=== PATIENT | male | born 1975 | race Caucasian/White ===

== ENCOUNTER 2020-08-17 15:58 | Inpatient (IN) | payer OTHER ==
[~2020-08-17] VITALS: Ht 157.5 cm; Wt 37.5 kg
[2020-08-17] MEDS ORDERED: IBUP200T45 PO (16:29)
[2020-08-17] MEDS ORDERED: LACT20EL PO (16:29)
[2020-08-17] MEDS ORDERED: ATIV1TAB7 PO (16:29)
[2020-08-17] MEDS ORDERED: MUCI1TAB18 PO (16:29)
[2020-08-17] MEDS ORDERED: SCOP1PAT2 TOP (16:29)
[2020-08-17] MEDS ORDERED: BACL1TAB9 PO (16:29)
[2020-08-17] MEDS ORDERED: OMEP40CA4 PO (16:29)
[2020-08-17] MEDS ORDERED: FLUC200T2 PO (16:29)
[2020-08-17] MEDS ORDERED: NS 500 ML IV ONE (17:00)
[2020-08-17] MEDS ORDERED: NS 1,040 ML in IV 1 EA IV ONE (17:00)
--- NOTE | 2020-08-17 17:26 | ECGEPIP ---
[facility] - ED Test Date: 2020-08-17 Pat Name: MALA GAMBLE Department: Room: - Gender: Male Fabrication Welder: AMRIT : 1975 Requested By: MALA BROTHERS Order Number: [id number] Reading MD: Crow Saenz Measurements Intervals [place] Rate: 130 P: 69 TX: 130 QRS: 53 QRSD: 68 T: 74 QT: 288 QTc: 423 Interpretive Statements Sinus tachycardia NO PRIORS FOR COMPARISON Electronically Signed on 08-17-2020 17:26:14 EDT by Crow Saenz
[2020-08-17 17:50] LABS: VENOUS BASE EXCESS -5.9 (-2.0-2.0); VENOUS HCO3 19.3 MEQ/L (23.0-27.0); VENOUS O2 SATURATION 93.1 % (60.0-80.0); VENOUS PARTIAL PRESSURE CO2 37.1 mmHg (38.0-50.0); VENOUS PARTIAL PRESSURE O2 70.7 mmHg (30.0-50.0); VENOUS PH 7.334 UNITS (7.330-7.430); VENOUS STANDARD HCO3 19.6 MEQ/L; VENOUS TOTAL CO2 20.4 MEQ/L (24.0-28.0)
[2020-08-17 17:56] LABS: HEMATOCRIT 45.3 % (42.0-52.0); HEMOGLOBIN 14.1 g/dl (13.5-17.5); MEAN CORPUSCULAR HEMOGLOBIN 26.2 pg (27.0-33.0); MEAN CORPUSCULAR HGB CONC 31.1 g/dl (32.0-36.5); MEAN CORPUSCULAR VOLUME 84.2 fl (80.0-96.0); PLATELET COUNT, AUTOMATED 620 10^3/uL (150-450); RED BLOOD COUNT 5.38 10^6/uL (4.30-6.10); WHITE BLOOD COUNT 16.2 10^3/uL (4.0-10.0)
--- NOTE | 2020-08-17 17:56 | REP ---
INDICATION: Abdominal Pain. COMPARISON: None. TECHNIQUE: Cross-table lateral view of the upper abdomen and lower chest as well as a supine KUB. A supine chest x-ray is also included. FINDINGS: There are increased interstitial markings in the left lung base on the frontal view of the chest. Early infiltrate cannot be excluded. A gastrojejunostomy tube is noted in place. Tubing is seen coursing through the C loop in to the left upper quadrant consistent with jejunal position. There is mild gaseous distention of the proximal colon. There is marked rectal distention with formed stool filling the pelvis and central abdomen. This is consistent with fecal impaction/fecal retention. IMPRESSION: Feeding gastrojejunostomy tube in place. Marked formed stool dilation of the rectum consistent with fecal retention/fecal impaction. Increased interstitial markings left lung base. Cannot exclude early infiltrate. a <Electronically signed by Giorgio Vasques > 08/17/20 [id number]
[2020-08-17] MEDS ORDERED: CALCIUM GLUCONATE 1,000 MG in D5W MINI-BAG PLUS 100 ML IV ONE (18:25)
[2020-08-17] MEDS ORDERED: ISOVUE-370 76% 100ML VIAL As Ordered ONE (18:30)
[2020-08-17 19:09] LABS: ATYPICAL LYMPH 3 % (0-5); LYMPHOCYTES 7 % (16-44); METAMYELOCYTES 1 % (0-0); MONOCYTES 7 % (0-5); NEUTROPHILS 27 % (28-66); PLATELET ESTIMATE INCREASED (NORMAL)
[2020-08-17] MEDS ORDERED: PIPERACILLIN/TAZOBACTAM SOD 4.5 GM in D5W MINI-BAG PLUS 50 ML IV ONE (19:20)
[2020-08-17] MEDS ORDERED: VANCOMYCIN HCL 500 MG in D5W MINI-BAG PLUS 100 ML IV ONE (19:30)
--- NOTE | 2020-08-17 19:55 | REPVR ---
PROCEDURE INFORMATION: Exam: CT Chest With Contrast; Diagnostic Exam date and time: 08/17/2020 6:42 PM Age: 45 years old Clinical indication: Other: SOB; Further evaluate for infiltrate and obstruction TECHNIQUE: Imaging protocol: Diagnostic computed tomography of the chest with contrast. Radiation optimization: All CT scans at this facility use at least one of these dose optimization techniques: automated exposure control; mA and/or kV adjustment per patient size (includes targeted exams where dose is matched to clinical indication); or iterative reconstruction. Contrast material: ISOVUE 370; Contrast volume: 75 ml; Contrast route: INTRAVENOUS (IV); COMPARISON: ME Abdomen,Flat Upright,PA CHEST 08/17/2020 5:17 PM FINDINGS: Lungs: Diffuse ground-glass nodular opacities centered on the centrilobular core structures noted in both lungs, right greater than left. Pleural spaces: Unremarkable. No pneumothorax. No pleural effusion. Heart: Unremarkable. No cardiomegaly. No pericardial effusion. Mediastinal space: Large sliding hiatal hernia with fluid noted in the esophagus up to the level of the thoracic inlet. Aorta: Unremarkable. No aortic aneurysm. Lymph nodes: Unremarkable. No enlarged lymph nodes. Kidneys and ureters: Bilateral less than 1 cm renal cysts. No hydronephrosis in the visualized portion of either kidney. Stomach and bowel: PEG tube is present within the stomach. Bowel is herniated into the lesser sac. Intraperitoneal space: Small amount of intra-abdominal ascites. Bones/joints: Unremarkable. No acute fracture. Soft tissues: Asymmetric thickening of the soft tissues of the left side of the neck as compared to the right. IMPRESSION: 1. Diffuse pneumonitis. Bronchiolitis/vasculitis among the considerations. No evidence of interstitial fibrosis which might be expected with connective tissue related disease. 2. Dilated fluid-filled esophagus. Findings suggest a severe gastroesophageal reflux, achalasia or scleroderma. 3. Foramen of Sukhjinder hernia 4. Bilateral simple renal cysts.No further workup recommended. 5. Small amount of intra-abdominal ascites. COMMENTS: Consistent with the [employer]'s Incidental Findings Committee white paper (J Am Javad Radiol 2018): Any incidental renal lesion less than 1 cm or classified as too small to characterize, or any incidental cystic renal lesion characterized as simple-appearing, is likely benign. No follow-up imaging is recommended for these lesions per consensus recommendations based on imaging criteria. Electronically signed by: Melisa Sanchez On 08/17/2020 19:55:06 PM
--- NOTE | 2020-08-17 20:05 | REPVR ---
PROCEDURE INFORMATION: Exam: CT Abdomen And Pelvis With Contrast Exam date and time: 08/17/2020 6:42 PM Age: 45 years old Clinical indication: Other: SOB; Further evaluate for infiltrate and obstruction TECHNIQUE: Imaging protocol: Computed tomography of the abdomen and pelvis with contrast. Radiation optimization: All CT scans at this facility use at least one of these dose optimization techniques: automated exposure control; mA and/or kV adjustment per patient size (includes targeted exams where dose is matched to clinical indication); or iterative reconstruction. Contrast material: ISOVUE 370; Contrast volume: 75 ml; Contrast route: INTRAVENOUS (IV); COMPARISON: [place] Abdomen,Flat Upright,PA CHEST 08/17/2020 5:17 PM FINDINGS: Tubes, catheters and devices: Peg tube present within the stomach. Lungs: Nodular ground-glass opacities at both lung bases with subpleural atelectasis/consolidation in dependent portion of the lung bases. Mediastinal space: Fluid-filled esophagus. The esophageal wall is thickened. Liver: Normal. No mass. Gallbladder and bile ducts: Normal. No calcified stones. No ductal dilation. Pancreas: Normal. No ductal dilation. Spleen: Normal. No splenomegaly. Adrenal glands: Normal. No mass. Kidneys and ureters: Bilateral simple renal cysts too numerous to count. No hydronephrosis. Stomach and bowel: Bowel herniated into the lesser sac. Massive distention of the rectosigmoid colon with stool. Dilated small bowel loops noted in the abdomen particularly on the right Appendix: Not seen as a separate structure. Intraperitoneal space: Small amount of perihepatic ascites. Moderate amount of ascites within the abdomen and pelvis. Ascites noted in the inguinal canal on the right. Vasculature: Unremarkable. No abdominal aortic aneurysm. Lymph nodes: Unremarkable. No enlarged lymph nodes. Urinary bladder: Loculated fluid collection noted in the right hemipelvis may be related to the patient's bladder which is displaced anteriorly and to the right by the massively distended rectosigmoid colon. Reproductive: Unremarkable as visualized. Bones/joints: Unremarkable. No acute fracture. Soft tissues: 1.7 cm Lipoma on the right adjacent to obturator externus muscle.. IMPRESSION: 1. Large fecal impaction. Partial small bowel obstruction or focal ileus. 2. Foramen of [place] hernia. 3. Moderate amount of intra-abdominal ascites. 4. Bilateral simple renal cysts.No further workup recommended. 5. Fluid collection right lower quadrant probably representing the patient's bladder which is displaced by the massively distended rectosigmoid colon 6. Six. Nodular ground-glass opacities at the lung bases. Bronchiolitis or vasculitis among the diagnostic considerations COMMENTS: Consistent with the [employer]'s Incidental Findings Committee white paper (J Am Javad Radiol 2018): Any incidental renal lesion less than 1 cm or classified as too small to characterize, or any incidental cystic renal lesion characterized as simple-appearing, is likely benign. No follow-up imaging is recommended for these lesions per consensus recommendations based on imaging criteria. Electronically signed by: Melisa Sanchez On 08/17/2020 20:04:25 PM
[2020-08-17] MEDS ORDERED: ALLE1TAB23 PO (20:12)
[2020-08-17] MEDS ORDERED: MUCI1TAB16 PO (20:12)
[2020-08-17] MEDS ORDERED: FAMO1TAB11 PO (20:12)
[2020-08-17] MEDS ORDERED: LORA1TAB4 PO (20:12)
[2020-08-17 20:49] LABS: BLOOD UREA NITROGEN 24 MG/DL (7-18); CARBON DIOXIDE LEVEL 20 MEQ/L (21-32); CHLORIDE LEVEL 110 MEQ/L (98-107); CREATININE FOR GFR 1.35 MG/DL (0.70-1.30); GLOMERULAR FILTRATION RATE > 60.0 (>60); GLUCOSE, FASTING 77 MG/DL (70-100); POTASSIUM SERUM 3.8 MEQ/L (3.5-5.1); SODIUM LEVEL 142 MEQ/L (136-145)
[2020-08-17] MEDS ORDERED: MOM 30ML SUSPENSION UDC PO PRN (21:15)
[2020-08-17] MEDS ORDERED: MAALOX 30 ML SUSP *UDC PO PRN (21:15)
[2020-08-17] MEDS ORDERED: ACETAMINOPHEN TAB 650MG DOSE (2X325MG) PO PRN (21:15)
--- NOTE | 2020-08-17 21:22 | HPEPDOC ---
[facility] Medical History & Physical Date of Admission Aug 17, 2020 Date of Service: Aug 17, 2020 Attending Physician: NISHA ROBERTS MD History and Physical TIME OF SERVICE: 9:45 PM CHIEF COMPLAINT: Agitation HISTORY OF PRESENT ILLNESS: The history was obtained from the patient's mother the patient has cerebral palsy. Mr. Montgomery and his mother, who reside in [place], are visiting a relative in the area. This morning the patient was in his usual state but she noticed that this afternoon while watching TV he became agitated and his abdomen was distended and tight. She gave him stool softeners which helped a little bit but prior to their departure home the patient became more agitated, less responsive, his bowel sounds became loud and he started vomiting brown-colored malodorous fluid. He has had 2 similar episodes in the past which required surgical disimpaction; the patient's mother was concerned that he might have a recurrence therefore she came to the ER for evaluation. REVIEW OF SYSTEMS: Unable to obtain assess because the patient is cognitively impaired PAST MEDICAL/ SURGICAL HISTORY: Cerebral palsy complicated by dysphagia and placement of PEG tube x2, TMJ, GERD, he has been hospitalized for pneumonia in the past, history of fecal impaction requiring surgical disimpaction's x2 SOCIAL HISTORY: He does not smoke drink or use recreational drugs and resides with his mother in [place] FAMILY HISTORY: According to his mother there is no history of family medical problems ALLERGIES: Please see below. HOME MEDICATIONS: Please see below. PHYSICAL EXAMINATION: Vital Signs Date Time Temp Pulse Resp B/P (MAP) Pulse Ox O2 Delivery O2 Flow Rate FiO2 08/17/20 16:00 98.0 107 124/70 (88) Room Air 08/17/20 16:09 24 92 GENERAL APPEARANCE: Cachectic/lethargic but intermittently arousable with vocal and physical stimuli HEENT: mucous membranes are pink but dry /NG to low intermittent suction there is about 200 mls of fecal colored fluid in the suction container CARDIOVASCULAR: He is tachycardic/NMRG / no LE edema LUNGS: CTAB on RA ABDOMEN: He has a PEG tube/the skin surrounding the PEG tube is intact there is no redness or discharge/contour flat / soft MUSCULOSKELETAL: He has temporal wasting /he has muscle wasting affecting the extremities INTEGUMENT: not he is slightly diaphoretic and flushed NEUROLOGICAL: Unable to assess because the patient is cognitively impaired PSYCHIATRIC: assess because the patient is cognitively impaired LABORATORY DATA: 08/17/20 18:11 IMAGING: Abdominal x-ray IMPRESSION: Feeding gastrojejunostomy tube in place. Marked formed stool dilation of the rectum consistent with fecal retention/fecal impaction. Increased interstitial markings left lung base. Cannot exclude early infiltrate. a" CT abdomen and pelvis IMPRESSION: 1. Large fecal impaction. Partial small bowel obstruction or focal ileus. 2. Foramen of [place] hernia. 3. Moderate amount of intra-abdominal ascites. 4. Bilateral simple renal cysts.No further workup recommended. 5. Fluid collection right lower quadrant probably representing the patient's bladder which is displaced by the massively distended rectosigmoid colon 6. Six. Nodular ground-glass opacities at the lung bases. Bronchiolitis or vasculitis among the diagnostic considerations COMMENTS: Consistent with the [employer]'s Incidental Findings Committee white paper (J Am Javad Radiol 2018): Any incidental renal lesion less than 1 cm or classified as too small to characterize, or any incidental cystic renal lesion characterized as simple-appearing, is likely benign. No follow-up imaging is recommended for these lesions per consensus recommendations based on imaging criteria. CT chest IMPRESSION: 1. Diffuse pneumonitis. Bronchiolitis/vasculitis among the considerations. No evidence of interstitial fibrosis which might be expected with connective tissue related disease. 2. Dilated fluid-filled esophagus. Findings suggest a severe gastroesophageal reflux, achalasia or scleroderma. 3. Foramen of [place] hernia 4. Bilateral simple renal cysts.No further workup recommended. 5. Small amount of intra-abdominal ascites. COMMENTS: Consistent with the [employer]'s Incidental Findings Committee white paper (J Am Javad Radiol 2018): Any incidental renal lesion less than 1 cm or classified as too small to characterize, or any incidental cystic renal lesion characterized as simple-appearing, is likely benign. No follow-up imaging is recommended for these lesions per consensus recommendations based on imaging cr iteria. MICROBIOLOGY: Respiratory panel is negative ASSESSMENT: Mr. Montgomery is a 45-year-old with a history of Cerebral palsy with dysphagia requiring PEG tube, TMJ, GERD, and history of surgical disimpaction's who is admitted for management of sepsis, partial small bowel obstruction, and large fecal impaction. PLAN: 1 Sepsis He has the following SIRS criteria: HR >120s during exam / bands 55% % / WBC 16.2 / RR 24 The source is likely intra-abdominal He also has lactic acidosis and shock liver Plan: Because NEWS2 Score is 9 points, which puts him in the high risk category, we will admit him to PCU / telemetry /trend lactic acid, check DIC panel/Zosyn and vancomycin pending blood culture results/ switch to lactate ringers / Acetaminophen PRN for fever / target MAP at of least 65 to 70 / f/u Is and Os with target UOP of at least 0.5 ml/kg/H / f/u FSBS w target serum glucose 140-180 while acutely ill 2 Partial small bowel obstruction/large fecal impaction Plan: hold tube feedings/IV fluids/NGT to low intermittent suction/trend mag and potassium/follow-up with Dr. Barraza in the morning /low-dose morphine as needed for pain and agitation 3 ANTONETTE Likely prerenal Plan: IV fluids/follow-up lytes for FENa/follow-up renal ultrasound 4 Transaminitis likely due to shock liver Plan: Follow-up hepatitis panel / trend LFTs / tx infection 5 Pneumonitis? His mother reported that he was hospitalized for pneumonia in [place]. Because he is on fluconazole wonder if the infection was coccidiomycosis. Plan: Continue with fluconazole/request records from [facility] /the daytime team may consider consulting ID () 6 Ascites Plan: Follow-up hepatitis panel/based on the CT scan findings and his physical exam I suspect the volume is to small for paracentesis 7 Cerebral palsy Plan: Ativan PRN agitation DVT PROPHYLAXIS: Teds and sequentials (Mitesh score is 4 therefore pharmacological prophylaxis is indicated) DISPOSITION: his prognosis is guarded / anticipate that he will need more than 2 midnight's stay Home Medications Scheduled Baclofen (Baclofen) 20 Mg Tablet, 20 MG PO TID Famotidine (Famotidine) 20 Mg Tablet, 20 MG PO BID Fexofenadine HCl (Fexofenadine HCl) 180 Mg Tablet, 180 MG PO DAILY Fluconazole (Fluconazole) 200 Mg Tablet, 400 MG PO DAILY Guaifenesin (Mucinex) 1,200 Mg Tab.er.12h, 1,200 MG PO BID Lactulose (Lactulose) 10 Gm/15 Ml Solution, 30 ML PO QHS Lorazepam (Lorazepam) 1 Mg Tablet, 1 MG PO DAILY Omeprazole (Omeprazole) 40 Mg Capsule., 40 MG PO BID Scopolamine (Transderm-Scop) 1 Each Patch.td.3, 1 MG TOP Q72H BEHIND LEFT EAR Scheduled PRN Ibuprofen (Ibu-200) 200 Mg Tablet, 600 MG PO Q4H PRN for PAIN LEVEL 1-5 Lorazepam (Ativan) 1 Mg Tablet, 1 MG PO QHS PRN for ANXIETY Allergies Coded Allergies: No Known Allergies (Unverified , 08/17/20) A-FIB/CHADSVASC A-FIB History Current/History of A-Fib/PAF?: No Current PO Anticoag Therapy: No NISHA ROBERTS MD Aug 17, 2020 21:22
[2020-08-17 22:05] LABS: RSV AMPLIFICATION NEGATIVE (NEGATIVE)
[2020-08-17 22:13] LABS: OSMOLALITY SERUM 302 MOSM/KG (275-295)
[2020-08-17 22:13] LABS: MRSA PCR SCREEN NOT DETECTED (NEGATIVE)
[2020-08-17 22:48] LABS: INR 1.17; PROTHROMBIN TIME 15.2 SECONDS (12.5-14.3)
[2020-08-17 22:49] LABS: FIBRINOGEN 410 MG/DL (221-452); PARTIAL THROMBOPLASTIN TIME 22.5 SECONDS (24.2-38.5)
[2020-08-17 22:57] LABS: ALBUMIN 2.7 GM/DL (3.2-5.2); ALT/SGPT 61 U/L (12-78); BILIRUBIN,DIRECT < 0.1 MG/DL (0.0-0.2); BILIRUBIN,TOTAL 0.2 MG/DL (0.2-1.0); CPK CREATINE PHOSPHOKINASE 75 U/L (39-308); HEPATITIS B SURFACE ANTIGEN NEGATIVE (NEGATIVE); TOTAL PROTEIN 5.9 GM/DL (6.4-8.2); URIC ACID 4.7 MG/DL (3.5-7.2)
[2020-08-17 23:16] LABS: D-DIMER QUANT > 4000 ng/ml (<500)
[2020-08-17 23:20] LABS: HEPATITIS B CORE ANTIBODY IGM NEGATIVE (NEGATIVE); HEPATITIS C VIRUS ABY INDEX 0.1 INDEX (<0.8)
[2020-08-17 23:23] LABS: HEPATITIS A ANTIBODY IGM NEGATIVE (NEGATIVE)
[2020-08-18] MEDS ORDERED: MORPHINE 2 MG/ML 1ML VIAL (J2270) IV PRN (00:30)
--- NOTE | 2020-08-18 01:01 | REPVR ---
PROCEDURE INFORMATION: Exam: US Retroperitoneal Limited, Kidneys Exam date and time: 08/17/2020 11:25 PM Age: 45 years old Clinical indication: Screening exam; Other: Eduardo TECHNIQUE: Imaging protocol: Real-time ultrasound of the retroperitoneum with image documentation. Examination was focused on the kidneys. COMPARISON: 1. CT ABD/PEL W/IV CONTRAST ONLY 2020-08-17 18:35 2. [place] Abdomen,Flat Upright,PA CHEST 2020-08-17 17:17 FINDINGS: 8.5 cm right, and 8 cm left kidneys with increased echogenicity. Kidneys are small and without masses or hydronephrosis. Couple subcentimeter simple benign renal cysts are present. Small amount of free fluid and also fluid distended bowel. IMPRESSION: 1. No sonographic acute abnormality. 2. Chronic renal disease. 3. Small amount of free fluid and also fluid distended bowel. Electronically signed by: Bijan Martinez On 08/18/2020 01:00:48 AM
[2020-08-18] MEDS ORDERED: LORazepam 1 MG TAB PO PRN (01:05)
[2020-08-18] MEDS ORDERED: VANCOMYCIN HCL 1,000 MG, VIAL MATE ADAPTER 1 EACH in NS 250 ML IV ONE (02:15)
[2020-08-18] MEDS: LR 1,000 ML IV SCH ×4 (06:22→19:33)
[2020-08-18] MEDS: PIPERACILLIN/TAZOBACTAM SOD 3.375 GM in D5W MINI-BAG PLUS 50 ML IV SCH ×3 (06:24→18:00)
[2020-08-18 06:34] LABS: HEMATOCRIT 38.3 % (42.0-52.0); HEMOGLOBIN 12.3 g/dl (13.5-17.5); MEAN CORPUSCULAR HEMOGLOBIN 26.3 pg (27.0-33.0); MEAN CORPUSCULAR HGB CONC 32.1 g/dl (32.0-36.5); RED BLOOD COUNT 4.67 10^6/uL (4.30-6.10)
[2020-08-18 06:36] LABS: PLATELET COUNT, AUTOMATED 374 10^3/uL (150-450)
[2020-08-18 06:49] LABS: ALBUMIN 2.7 GM/DL (3.2-5.2); BILIRUBIN,TOTAL 0.3 MG/DL (0.2-1.0); CALCIUM LEVEL 8.9 MG/DL (8.5-10.1); CREATININE FOR GFR 1.41 MG/DL (0.70-1.30); GLOMERULAR FILTRATION RATE 58.4 (>60); MAGNESIUM LEVEL 2.1 MG/DL (1.8-2.4); POTASSIUM SERUM 4.4 MEQ/L (3.5-5.1); TOTAL PROTEIN 6.9 GM/DL (6.4-8.2)
[2020-08-18] MEDS ORDERED: LORazepam 1 MG TAB PO SCH (09:00)
[2020-08-18] MEDS ORDERED: FLUCONAZOLE 100 MG TAB PO SCH (09:00)
[2020-08-18] MEDS: ENOXAPARIN 30MG/0.3ML SYRINGE (J1650 PER 10MG) SC SCH (09:37)
--- NOTE | 2020-08-18 13:27 | CR.PDOC ---
General Date of Consultation: Aug 18, [address] Barraza. HISTORY OF PRESENT ILLNESS: History is provided by the pt's mother at bedside and taken from the chart. The patient has cerebral palsy, is wheelchair bound, non ambulatory, chronic dysphagia with feeding tube. The pt and his mother, who reside in [place], were visiting a relative in the area. 08/17 the patient was in his usual state but his mother noticed in the afternoon he became agitated and his abdomen was distended and tight. She tried giving him stool softeners which seemed to help but the patient became more agitated, less responsive, and had vomiting brown-colored fluid. He has had 2 similar episodes in the past which required surgical disimpaction. His mother was concerned that he might have a recurrence therefore she came to the ER for evaluation. General Surgery was consulted. ALLERGIES: Please see below. HOME MEDICATIONS: Please see below. PMH/PSH Cerebral palsy dysphagia and placement of G-J tube TMJ GERD hospitalized for pneumonia in the past, history of fecal impaction requiring surgical disimpaction's x2 SOCIAL HISTORY: lives with his mother in [place]. REVIEW OF SYSTEMS: The pt is unable to provide history. PHYSICAL EXAMINATION: VITAL SIGNS: Afebrile Heart rate 109, respiratory rate 20, blood pressure 139/95, O2 sat 100%. GENERAL APPEARANCE: Cachectic appearing HEENT: Bilious drainage is noted from the mouth. RESPIRATORY: Rhonchi noted CARDIOVASCULAR: Tachycardic ABDOMEN: GJ tube in place, fecal retention palpable mid abdomen. EXTREMITIES: Contractures upper and lower extremities with muscle wasting noted. LABORATORY DATA: WBC 28.0, this is increased from 16.27/13. Hemoglobin 12.3 Platelets 374 Follow-up lactic acid at 6:15 AM 4.0 Serum creatinine 1.41, GFR 58.4 Imaging AXR Feeding gastrojejunostomy tube in place. Marked formed stool dilation of the rectum consistent with fecal retention/fecal impaction. Increased interstitial markings left lung base. Cannot exclude early infiltrate. a <Electronically signed by Giorgio Vasques > 08/17/[address] A/P IMPRESSION: 1. Large fecal impaction. Partial small bowel obstruction or focal ileus. 2. Foramen of Sukhjinder hernia. 3. Moderate amount of intra-abdominal ascites. 4. Bilateral simple renal cysts.No further workup recommended. 5. Fluid collection right lower quadrant probably representing the patient's bladder which is displaced by the massively distended rectosigmoid colon 6. Six. Nodular ground-glass opacities at the lung bases. Bronchiolitis or vasculitis among the diagnostic considerations ASSESSMENT/PLAN: Ileus possibly secondary to his acute illness. Management of sepsis as per hospitalist The patient is reviewed and examined as per Dr. Barraza. Continue NPO G tube to LIS, 825ml recorded output so far. IVF 100ml/hr Continue to closely monitor. Dysphagia/G/J-tube in place. Large fecal impaction Requested soapsuds enema this morning and to be repeated at noon time. Monitor. Vital Signs/I&O Vital Signs Date Time Temp Pulse Resp B/P (MAP) Pulse Ox O2 Delivery O2 Flow Rate FiO2 08/18/20 12:30 109 20 139/95 (110) 100 08/17/20 16:09 Room Air 08/17/20 16:00 98.0 I&O- Last 24 Hours up to 6 AM 08/18/20 05:59 Intake Total 1310 ml Balance 1310 ml Laboratory Data Labs 24H Laboratory Tests 2 08/17/20 16:56: Neutrophils (%) (Auto) , Nucleated Red Blood Cells % (auto) 0.0, Neutrophils 27L, Band Neutrophils 55H, Lymphocytes (Manual) 7L, Monocytes (Manual) 7H, Metamyelocytes 1H, Atypical Lymphocytes 3, Platelet Estimate INCREASED, Lactic Acid Level 5.9*H 08/17/20 17:22: Blood Gas Bicarbonate Standard 19.6, Venous Blood pH 7.334, Venous Blood Partial Pressure CO2 37.1L, Venous Blood Partial Pressure O2 70.7H, Venous Blood Total Carbon Dioxide 20.4L, Venous Blood HCO3 19.3L, Venous Blood Oxygen Saturation 93.1H, Venous Blood Base Excess -5.9L 08/17/20 17:44: POC Glucose (Misc Panel) 104, POC Sodium (Misc Panel) 136, POC Potassium (Misc Panel) 8.4*H, POC Chloride (Misc Panel) 108, POC Total CO2 (Misc Panel) 21.0L, POC Blood Urea Nitrogen (Misc Panel 36H, POC Ionized Calcium (Misc Panel) 4.3L, POC Creatinine (Misc Panel) 1.5H, POC Hematocrit (Misc Panel) 48.0 08/17/20 18:11: Anion Gap 12, Glomerular Filtration Rate > 60.0, Osmolality 302H, Uric Acid 4.7, Calcium Level 8.0L, Total Bilirubin 0.2, Direct Bilirubin < 0.1, Aspartate Amino Transf (AST/SGOT) 48H, Alanine Aminotransferase (ALT/SGPT) 61, Alkaline Phosphatase 131H, Total Creatine Kinase 75, Total Protein 5.9L, Albumin 2.7L, Albumin/Globulin Ratio 0.8, Hepatitis A IgM Antibody NEGATIVE, Hepatitis B Giovanna face Antigen NEGATIVE, Hepatitis B Core IgM Antibody NEGATIVE, Hepatitis C Antibody Index 0.1 08/17/20 20:11: Coronavirus (COVID-19)(PCR) NEGATIVE, Influenza Type A (RT-PCR) NEGATIVE, Influenza Type B (RT-PCR) NEGATIVE, Respiratory Syncytial Virus (PCR) NEGATIVE, Methicillin-Resist S.aureus DNA PCR NOT DETECTED 08/17/20 22:27: Prothrombin Time 15.2H, Prothromb Time International Ratio 1.17, Activated Partial Thromboplast Time 22.5L, Fibrinogen 410, D-Dimer, Quantitative > 4000H, Lactic Acid Level 6.2*H 08/18/20 01:15: Lactic Acid Level 6.3*H 08/18/20 06:15: Nucleated Red Blood Cells % (auto) 0.0, Anion Gap 9, Glomerular Filtration Rate 58.4L, Lactic Acid Followup at 4 Hours 4.0*H, Calcium Level 8.9, Magnesium Level 2.1, Total Bilirubin 0.3, Aspartate Amino Transf (AST/SGOT) 50H, Alanine Aminotransferase (ALT/SGPT) 65, Alkaline Phosphatase 122H, Total Protein 6.9, Albumin 2.7L, Albumin/Globulin Ratio 0.6 08/18/20 11:01: Lactic Acid Level 3.8*H, Procalcitonin 127.88 CBC/BMP Laboratory Tests 08/17/20 16:56 08/17/20 18:11 08/18/20 06:15 Microbiology Microbiology 08/17/20 Blood Culture, Received Pending 08/17/20 Blood Culture, Received Pending Allergies Coded Allergies: No Known Allergies (Unverified , 08/17/20) Home Medications Scheduled Baclofen (Baclofen) 20 Mg Tablet, 20 MG PO TID, (Reported) Famotidine (Famotidine) 20 Mg Tablet, 20 MG PO BID, (Reported) Fexofenadine HCl (Fexofenadine HCl) 180 Mg Tablet, 180 MG PO DAILY, (Reported) Fluconazole (Fluconazole) 200 Mg Tablet, 400 MG PO DAILY, (Reported) Guaifenesin (Mucinex) 1,200 Mg Tab.er.12h, 1,200 MG PO BID, (Reported) Lactulose (Lactulose) 10 Gm/15 Ml Solution, 30 ML PO QHS, (Reported) Lorazepam (Lorazepam) 1 Mg Tablet, 1 MG PO DAILY, (Reported) Omeprazole (Omeprazole) 40 Mg Capsule.dr, 40 MG PO BID, (Reported) Scopolamine (Transderm-Scop) 1 Each Patch.td.3, 1 MG TOP Q72H, (Reported) BEHIND LEFT EAR Scheduled PRN Ibuprofen (Ibu-200) 200 Mg Tablet, 600 MG PO Q4H PRN for PAIN LEVEL 1-5, (Reported) Lorazepam (Ativan) 1 Mg Tablet, 1 MG PO QHS PRN for ANXIETY, (Reported) Raquel Lay Aug 18, 2020 13:27
[2020-08-18] MEDS ORDERED: VANCOMYCIN INTERMITTENT/PULSE DOSING BY CLINICAL PHARMACIST PER DOSING PROTOCOL XX SCH (15:11)
--- NOTE | 2020-08-18 15:58 | IPNPDOC ---
Text Note Date of Service The patient was seen on 08/18/20. NOTE Subjective: Patient lethargic in the morning. I talked to his mom, she told me that he was somnolent since yesterday evening. Objective: GENERAL APPEARANCE: Ill looking cachectic male HEENT: no scleral icterus, no JVD, EOMI CARDIOVASCULAR: S1S2 LUNGS: Diminished lung sounds bilaterally ABDOMEN: soft & not tender w palpitation, mildly distended MUSCULOSKELETAL: no cyanosis, no swelling INTEGUMENT: no generalized pallor NEUROLOGICAL: cranial nerve function from 2-12 intact intact, follows commands, speech not dysarthric Assessment and plan Patient is 45 years old male with past medical history of cerebral palsy, dysphagia with PEG tube, GERD, history of fecal impaction presented to hospital with sepsis, large fecal impaction and partial small bowel obstruction Sepsis Patient has a leukocytosis, tachycardia, lactic acidosis and dyspnea. Procalcitonin significantly elevated to 127 Most likely secondary to bacterial translocation from bowels secondary to small bowel obstruction and large fecal impaction. CT showed Large fecal impaction. Partial small bowel obstruction or focal ileus MRSA negative, vancomycin discontinued Continue Zosyn IV day 1 Continue IV fluid Continue to monitor lactic acid Partial small bowel obstruction/fecal impaction Surgical team on board, recommended NG tube with intermittent suction, soapsuds enema this morning There is concern for ischemic bowel, we will continue to monitor Dysphagia G/J-tube in place. N.p.o. for now ANTONETTE Most likely prerenal secondary to intravascular depletion Continue to monitor Hyperkalemia Resolved Transaminitis Improved. Most likely secondary to fluconazole therapy Hepatitis panel negative Pneumonitis His mom stated that patient was treated with fluconazole for valley fever CT showed Diffuse pneumonitis. Bronchiolitis/vasculitis among the considerations. No evidence of interstitial fibrosis which might be expected with connective tissue related disease. 2. Dilated fluid-filled esophagus. Findings suggest a severe gastroesophageal reflux, achalasia or scleroderma We will request medical records from [facility] in [place]. Question for coccidiomycosis. We will continue fluconazole IV Cerebral palsy P.o. medications on hold for now VS,Fishbone, I+O VS, Fishbone, I+O Laboratory Tests 08/17/20 16:56 08/17/20 18:11 08/18/20 06:15 Vital Signs Date Time Temp Pulse Resp B/P (MAP) Pulse Ox O2 Delivery O2 Flow Rate FiO2 08/18/20 14:00 103 22 114/79 (91) 92 Venturi Mask 15.0 40 08/17/20 16:00 98.0 I&O- Last 24 Hours up to 6 AM 08/18/20 06:00 Intake Total 1310 ml Balance 1310 ml LILI RICH DO Aug 18, 2020 15:58
[2020-08-18 16:12] LABS: HEMATOCRIT 37.2 % (42.0-52.0); HEMOGLOBIN 11.8 g/dl (13.5-17.5); MEAN CORPUSCULAR HGB CONC 31.7 g/dl (32.0-36.5); MEAN CORPUSCULAR VOLUME 81.9 fl (80.0-96.0); PLATELET COUNT, AUTOMATED 408 10^3/uL (150-450); RED BLOOD COUNT 4.54 10^6/uL (4.30-6.10)
[2020-08-18 16:17] LABS: WHITE BLOOD COUNT 29.9 10^3/uL (4.0-10.0)
[2020-08-18] MEDS ORDERED: NS 1,000 ML IV ONE ×2 (17:05→18:45)
[2020-08-18 17:14] LABS: LYMPHOCYTES 4 % (16-44); METAMYELOCYTES 4 % (0-0); MONOCYTES 5 % (0-5); NEUTROPHILS 49 % (28-66)
[2020-08-18 17:16] LABS: PLATELET ESTIMATE NORMAL (NORMAL)
[2020-08-18 17:17] LABS: ANISOCYTOSIS 2+; OVALOCYTES 1+; POIKILOCYTOSIS 1+
[2020-08-18] MEDS: FLUCONAZOLE 200 MG in IV 1 EA IV SCH (19:20)
[2020-08-18 20:11] VITALS: BP 127/82
[2020-08-18] MEDS: LORazepam 2 MG/ML VIAL IV PRN (20:12)
[2020-08-18 20:21] VITALS: BP 132/75
--- NOTE | 2020-08-18 20:37 | REPVR ---
PROCEDURE INFORMATION: Exam: CT Abdomen And Pelvis Without Contrast Exam date and time: 08/18/2020 7:53 PM Age: 45 years old Clinical indication: Other: Ffup fecal impaction, sbo, ascites TECHNIQUE: Imaging protocol: Computed tomography of the abdomen and pelvis without contrast. Radiation optimization: All CT scans at this facility use at least one of these dose optimization techniques: automated exposure control; mA and/or kV adjustment per patient size (includes targeted exams where dose is matched to clinical indication); or iterative reconstruction. COMPARISON: CT ABD/PEL W/IV CONTRAST ONLY 08/17/2020 6:35 PM FINDINGS: Tubes, catheters and devices: Distal tip of the nasogastric tube position in the body of the stomach; There is a PEG tube present in the stomach with its tip in the proximal jejunum.. Liver: Normal. No mass. Gallbladder and bile ducts: Normal. No calcified stones. No ductal dilation. Pancreas: Normal. No ductal dilation. Spleen: Normal. No splenomegaly. Adrenal glands: Normal. No mass. Kidneys and ureters: 8 mm low-density lesion mid right kidney. Contrast excreted by both kidneys. Minimal asymmetric fullness left renal pelvis as compared to the right.. Stomach and bowel: Markedly dilated small bowel loops noted particularly in the right upper quadrant and right mid abdomen. As noted on the previous CT scan there is marked fecal retention noted in the rectosigmoid colon. Appendix: Not seen as a separate structure. Intraperitoneal space: Unremarkable. No free air. No significant fluid collection. Vasculature: Unremarkable. No abdominal aortic aneurysm. Lymph nodes: Unremarkable. No enlarged lymph nodes. Urinary bladder: Bladder containing contrast is markedly distended and displaced superiorly and to the right of midline into the abdomen. Reproductive: Unremarkable as visualized. Bones/joints: Unremarkable. No acute fracture. Soft tissues: Unremarkable. Other findings: . IMPRESSION: 1. No significant change in previously described fecal impaction involving the rectosigmoid colon 2. Markedly distended bladder. This is new compared to previous. 3. Persistent small bowel obstruction. The small bowel dilatation in the right mid abdomen appears to have increased. 4. Previously noted Ascites not as evident on this examination likely for technical reasons. 5. Nodular ground-glass opacities at both lung bases with subpleural atelectasis in the dependent portion of both lungs. COMMENTS: Consistent with the [employer]'s Incidental Findings Committee white paper (J Am Javad Radiol 2018): Any incidental renal lesion less than 1 cm or classified as too small to characterize, or any incidental cystic renal lesion characterized as simple-appearing, is likely benign. No follow-up imaging is recommended for these lesions per consensus recommendations based on imaging criteria. Electronically signed by: Melisa Sanchez On 08/18/2020 20:36:56 PM
[2020-08-18 20:46] LABS: ABG BASE EXCESS -3.4 (-2.0-2.0); ABG HCO3 20.8 MEQ/L (22.0-26.0); ABG O2 SATURATION 98.4 % (95.0-99.0); ABG PARTIAL PRESSURE CO2 34.6 mmHg (35.0-45.0); ABG PARTIAL PRESSURE O2 136.1 mmHg (75.0-100.0); ABG STANDARD HCO3 21.6 MEQ/L (22.0-26.0); ABG TOTAL CO2 21.9 MEQ/L (22.0-29.0); ABG pH (ARTERIAL) 7.397 UNITS (7.350-7.450)
[2020-08-18 20:53] LABS: ALT/SGPT 66 U/L (12-78); BILIRUBIN,TOTAL 0.4 MG/DL (0.2-1.0); BLOOD UREA NITROGEN 36 MG/DL (7-18); CALCIUM LEVEL 9.3 MG/DL (8.5-10.1); CARBON DIOXIDE LEVEL 20 MEQ/L (21-32); CHLORIDE LEVEL 114 MEQ/L (98-107); CREATININE FOR GFR 1.27 MG/DL (0.70-1.30); GLOMERULAR FILTRATION RATE > 60.0 (>60); GLUCOSE, FASTING 62 MG/DL (70-100); POTASSIUM SERUM 4.6 MEQ/L (3.5-5.1); SODIUM LEVEL 143 MEQ/L (136-145); TOTAL PROTEIN 7.4 GM/DL (6.4-8.2)
[2020-08-18 21:00] VITALS: BP 142/86
[2020-08-18 22:00] VITALS: BP 155/96
--- NOTE | 2020-08-18 22:07 | REPVR ---
PROCEDURE INFORMATION: Exam: XR Chest Exam date and time: 08/18/2020 9:56 PM Age: 45 years old Clinical indication: Other: Central line placement TECHNIQUE: Imaging protocol: XR of the chest. Views: 1 view. COMPARISON: CT Chest with contrast 08/17/2020 6:35 PM FINDINGS: Tubes, catheters and devices: Distal tip of the nasogastric tube projects in expected location of the body of the stomach; External monitoring devices present. Right subclavian line distal tip is directed cephalad into the expected location of the internal jugular vein. Peg tube projects over the stomach. Lungs: Coarse linear opacity at the left lung base. Interstitial prominence noted bilaterally Pleural spaces: Unremarkable. No pleural effusion. No pneumothorax. Heart/Mediastinum: Unremarkable. No cardiomegaly. Bones/joints: Unremarkable. Other findings: Patient is flexed laterally towards the left. IMPRESSION: 1. Right subclavian line distal tip is directed cephalad into the expected location of the right internal jugular vein. THIS REPORT CONTAINS FINDINGS THAT MAY BE CRITICAL TO PATIENT CARE. The findings were verbally communicated via telephone conference with MALA ARMSTRONG at 10:06 PM EDT on 08/18/2020. The findings were acknowledged and understood. 2. Left basilar subsegmental atelectasis with bilateral interstitial prominence. Electronically signed by: Melisa Sanchez On 08/18/2020 22:06:41 PM
[2020-08-18 22:51] LABS: BASO # 0.1 10^3/uL (0.0-0.2); BASO % 0.3 % (0.0-1.0); EOS % 0.1 % (0.0-3.0); HEMATOCRIT 31.7 % (42.0-52.0); HEMOGLOBIN 10.1 g/dl (13.5-17.5); LYMPH # 0.9 10^3/uL (1.5-5.0); LYMPH % 4.2 % (24.0-44.0); MEAN CORPUSCULAR HEMOGLOBIN 26.2 pg (27.0-33.0); MEAN CORPUSCULAR HGB CONC 31.9 g/dl (32.0-36.5); MEAN CORPUSCULAR VOLUME 82.3 fl (80.0-96.0); MONO # 0.9 10^3/uL (0.0-0.8); MONO % 4.3 % (2.0-8.0); NEUTROPHILS # 18.3 10^3/uL (1.5-8.5); NEUTROPHILS % 89.1 % (36.0-66.0); PLATELET COUNT, AUTOMATED 340 10^3/uL (150-450); RED BLOOD COUNT 3.85 10^6/uL (4.30-6.10); WHITE BLOOD COUNT 20.6 10^3/uL (4.0-10.0)
[2020-08-18 23:00] VITALS: BP 157/99
[2020-08-19] VITALS (19 sets, daily range): BP systolic 131–161; BP diastolic 69–96
[2020-08-19] MEDS: PIPERACILLIN/TAZOBACTAM SOD 3.375 GM in D5W MINI-BAG PLUS 50 ML IV SCH ×4 (00:13→19:21)
[2020-08-19] MEDS: LR 1,000 ML IV SCH (03:03)
[2020-08-19] MEDS ORDERED: VANCOMYCIN HCL 1,000 MG, VIAL MATE ADAPTER 1 EACH in NS 250 ML IV SCH (05:00)
[2020-08-19 05:44] LABS: ABG BASE EXCESS -5.2 (-2.0-2.0); ABG HCO3 19.2 MEQ/L (22.0-26.0); ABG O2 SATURATION 96.8 % (95.0-99.0); ABG PARTIAL PRESSURE CO2 33.2 mmHg (35.0-45.0); ABG PARTIAL PRESSURE O2 95.1 mmHg (75.0-100.0); ABG STANDARD HCO3 20.2 MEQ/L (22.0-26.0); ABG TOTAL CO2 20.2 MEQ/L (22.0-29.0)
[2020-08-19 05:52] LABS: BASO # 0.1 10^3/uL (0.0-0.2); BASO % 0.4 % (0.0-1.0); EOS % 0.1 % (0.0-3.0); HEMATOCRIT 31.1 % (42.0-52.0); HEMOGLOBIN 9.8 g/dl (13.5-17.5); LYMPH # 1.3 10^3/uL (1.5-5.0); LYMPH % 7.4 % (24.0-44.0); MEAN CORPUSCULAR HEMOGLOBIN 25.9 pg (27.0-33.0); MEAN CORPUSCULAR HGB CONC 31.5 g/dl (32.0-36.5); MEAN CORPUSCULAR VOLUME 82.1 fl (80.0-96.0); MONO # 0.9 10^3/uL (0.0-0.8); MONO % 4.7 % (2.0-8.0); NEUTROPHILS # 15.3 10^3/uL (1.5-8.5); NEUTROPHILS % 84.1 % (36.0-66.0); PLATELET COUNT, AUTOMATED 324 10^3/uL (150-450); RED BLOOD COUNT 3.79 10^6/uL (4.30-6.10); WHITE BLOOD COUNT 18.2 10^3/uL (4.0-10.0)
[2020-08-19 06:27] LABS: ALBUMIN 2.6 GM/DL (3.2-5.2); ALT/SGPT 55 U/L (12-78); BILIRUBIN,TOTAL 0.4 MG/DL (0.2-1.0); BLOOD UREA NITROGEN 27 MG/DL (7-18); CALCIUM LEVEL 8.6 MG/DL (8.5-10.1); CARBON DIOXIDE LEVEL 25 MEQ/L (21-32); CHLORIDE LEVEL 108 MEQ/L (98-107); CHOLESTEROL LEVEL 67 MG/DL (< 200); CPK CREATINE PHOSPHOKINASE 166 U/L (39-308); CREATININE FOR GFR 0.62 MG/DL (0.70-1.30); GLOMERULAR FILTRATION RATE > 60.0 (>60); GLUCOSE, FASTING 51 MG/DL (70-100); LDH LACTATE DEHYDROGENASE 188 U/L (87-241); PHOSPHORUS LEVEL 2.5 MG/DL (2.5-4.9); POTASSIUM SERUM 3.8 MEQ/L (3.5-5.1); SODIUM LEVEL 138 MEQ/L (136-145); TOTAL PROTEIN 6.3 GM/DL (6.4-8.2); TRIGLYCERIDES LEVEL 83 MG/DL (<150); VANCOMYCIN RANDOM 8.1 UG/ML
[2020-08-19] MEDS ORDERED: VANCOMYCIN HCL 1,000 MG, VIAL MATE ADAPTER 1 EACH in NS 250 ML IV ONE (06:40)
--- NOTE | 2020-08-19 08:08 | REP ---
INDICATION: sepsis COMPARISON: 08/18/2020 TECHNIQUE: Portable AP view of the chest FINDINGS: Nasogastric tube in stable satisfactory position. The mediastinum and cardiac silhouette are stable and within normal limits for portable technique. The lung petit demonstrate stable chronic changes without focal consolidation, effusion, or pneumothorax. Skeletal structures demonstrate osteopenia and degenerative changes. IMPRESSION: Chronic stable changes. No acute cardiopulmonary process appreciated. <Electronically signed by Wilfrido Akhtar > 08/19/20 0860
[2020-08-19] MEDS: D5W/0.9% SODIUM CHLORIDE 1,000 ML IV SCH ×2 (08:19→23:40)
[2020-08-19] MEDS: ENOXAPARIN 30MG/0.3ML SYRINGE (J1650 PER 10MG) SC SCH (08:19)
--- NOTE | 2020-08-19 09:09 | RO ---
OPERATIVE NOTE DATE OF OPERATION: 08/18/2020 PREOPERATIVE DIAGNOSIS: Hypovolemia. POSTOPERATIVE DIAGNOSIS: Hypovolemia. PROCEDURE PERFORMED: Right subclavian central venous pressure (CVP) placement. SURGEON: Bijan Aaron DO CONSUMER EDUCATION SPECIALIST: ANESTHESIA: DESCRIPTION OF PROCEDURE: The patient seen and the procedure explained to the patient's family. The risks and complications of the procedure including, but not limited to, bleeding, infection, medication reaction and lung collapse were explained and informed consent was obtained. The patient was placed in the supine position. The skin overlying the right subclavian vein was prepped with ChloraPrep and draped in the usual sterile fashion. A 25-gauge needle was used to raise a skin wheal of 1% lidocaine. Thereafter, a 17-gauge introducer needle was placed in through the skin and in the right subclavian vein. Free return of venous blood was obtained. A vascular tip guidewire was advanced and a small incision made adjacent to the guidewire. A triple-lumen catheter was placed over the guidewire to a distance of 17 cm. the guidewire was removed, the catheter was sewn in place, and a sterile dressing applied. A post-procedural chest x-ray is pending, and there were no complications.
--- NOTE | 2020-08-19 09:09 | CCN ---
CRITICAL CARE NOTE DATE: 08/18/2020 SUBJECTIVE: I was called to see this patient, a 45-year-old male with sepsis. He was admitted on the with decreased level of consciousness, abdominal distention and vomiting of feculent material. He was found to have a fecal impaction and abdominal ascites and possible small bowel obstruction. He has been given significant IV fluids and antibiotics but has failed to respond. His lactic acid remains elevated and other lab studies are worse. The level of consciousness is depressed. PAST MEDICAL HISTORY: His past medical history includes cerebral palsy, he has a G-tube in for dysphagia. OBJECTIVE: GENERAL: At bedside, he is ill-appearing and cachectic. He is restless. VITAL SIGNS: His temperature is 98, pulse rate is 128, respirations 22 and labored, blood pressure 132/81. HEENT: He is cachetic appearing. His mucosa are dry. NECK: Supple without meningismus but with rotation to the left resists any movement. There is no stridor over the trachea. HEART: Heart sounds are regular. LUNGS: Breath sounds are coarse, clear bilaterally. No focal sounds. ABDOMEN: Firm with a G-tube in place. There is no palpable mass although his lower abdomen is distended. EXTREMITIES: Contraction deformities. DIAGNOSTIC STUDIES: His initial abdominal x-rays identified marked stool, dilation of the rectum. CT scan of the abdomen showed fecal impaction, foramen of Sukhjinder hernia, intraabdominal ascites, some renal cysts, fluid in the right lower quadrant, possibly bladder and nodular ground-glass opacities within the lung with bronchiolitis. He had a chest CT that showed diffuse interstitial prominence and pneumonitis appearance. Multiple tiny nodular densities. Given his deterioration, repeat abdominal pelvic CT was performed and showed similar findings to the initial study with marked dilation and deviation of the urinary bladder. Serologic studies: On admission, his white count was 16.2, subsequently 28 and currently 29.9. Differential white cell count now shows 49% neutrophils and 38% bands. There is poikilocytosis and isocytosis and ovalocytes were identified. His initial chemistries showed a sodium is 142, potassium 3.8, chloride 110, CO2 20, BUN 24, creatinine 1.35, glucose is 77. Subsequent electrolytes: Sodium 142, potassium 4.4, chloride 112, CO2 21. BUN 31 and creatinine 1.41. Glucose 79. Lactic acids have been repeatedly measured at 6.2, 6.34, 3.8, 4.5 and 3.9. Last set of electrolytes just returned; sodium 143, potassium 4.6, chloride 114, CO2 is down to 20, BUN is 36, creatinine is up to 1.27, glucose is 62. His transaminases are slightly elevated at this point; AST is 54, ALT is 66, alkaline phosphatase is 120. Albumin is 3. An arterial blood gas performed on admission showed a pH of 7.33, pCO2 37, pO2 70, currently the pH is 7.39, pCO2 34, pO2 136. A urinalysis sent just recently shows 1+ protein, 1+ blood, 2 white cells, no bacteria. The primary problem requiring critical attention is sepsis. I suspect a GI source, broad spectrum antibiotics will be administered as well as IV fluids. Metabolic acidosis, will continue to follow gas exchange. He does appear to be compensated at this point. Bowel obstruction. I have discussed the case with surgery who will review the updated CT and determine whether surgical intervention is necessary in the short-term. Acute kidney injury, will proceed with hydration and avoid nephrotoxic agents, follow renal indices. Interstitial lung disease, likely this is a chronic finding. 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 I have discussed the case with the attending Hospitalist, surgeon and the patient's family, the mother and brother. We will communicate to proceed with resuscitative efforts. He will require central venous access for measurement of CVP and administration of IV fluids. I have updated the ICU nursing team on the patient's status and care plans for the evening. His condition is critical. Prognosis is guarded to poor; 167 minutes was spent in the provision of bedside critical care and coordination excluding any time for the performance of procedures.
--- NOTE | 2020-08-19 12:02 | IPNPDOC ---
Text Note Date of Service The patient was seen on 08/19/20. NOTE General Surgery Dr Barraza The patient has cerebral palsy, is wheelchair bound, non ambulatory, chronic dysphagia with feeding tube admitted with sepsis. General surgery consulted for ileus and large fecal impaction. The patient had 2 soapsuds enemas yesterday with results a small amount of stool. G-tube drainage 1325 mL Temperature 99.2, heart rate 103, respiratory rate 22, blood pressure 139/70, 94% Venturi mask. Generally ill-appearing, cachectic Dry mucous membranes S1-S2 tachycardic Lungs with coarse rhonchi Abdomen distended, GJ tube in place to LIS Contractions upper and lower extremities Urine 350 mL G-tube drainage 1325 mL 2 bowel movements recorded, nursing states small amount of stool after enemas. WBC 18.2 compared with 20.6 last evening Hemoglobin 9.8, 10.1 Meenakshi Platelets 324 Lactic acid 1.1 at 10:40 PM last evening decreased from 4.5 at 1557 hrs. Assessment/plan Ileus possibly secondary to his acute illness. Management of sepsis, IV antibiotics as per hospitalist/critical care The patient is reviewed and examined as per Dr. Barraza this morning. Continue NPO G tube to LIS, 1325 mL recorded yesterday IVF 100ml/hr Continue to closely monitor. Dysphagia/G/J-tube in place. Large fecal impaction Additional soapsuds enema requested. Monitor results. VS,Fishbone, I+O VS, Fishbone, I+O Laboratory Tests 08/18/20 15:57 08/18/20 20:12 08/18/20 22:40 08/19/20 05:24 Vital Signs Date Time Temp Pulse Resp B/P (MAP) Pulse Ox O2 Delivery O2 Flow Rate FiO2 08/19/20 11:05 100 131/85 (100) 100 Venturi Mask 8.0 31 08/19/20 08:00 99.2 22 I&O- Last 24 Hours up to 6 AM 08/19/20 06:00 Intake Total 490 ml Output Total 2500 ml Balance -2009 ml Raquel Lay Aug 19, 2020 12:02
[2020-08-19] MEDS: MOM 30ML SUSPENSION UDC PO SCH ×2 (12:54→20:29)
[2020-08-19] MEDS: DOCUSATE SOD LIQ 100MG/10ML UDC PO SCH ×2 (12:54→20:29)
[2020-08-19] MEDS: metroNIDAZOLE 500 MG in IV 1 EA IV SCH ×2 (12:55→20:30)
[2020-08-19] MEDS: MIRALAX *UNIT DOSE* 17GM PACKET PO SCH ×2 (12:55→20:29)
--- NOTE | 2020-08-19 13:14 | CCN ---
CRITICAL CARE NOTE DATE: 08/19/2020 SUBJECTIVE: The patient was seen in the intensive care unit. This is hospital day 3, ICU day 2. He is ill-appearing, more hydrated this morning. His respiratory status is borderline requiring supplemental oxygen. At bedside, his temperature is 98, pulse rate is 115, respirations 20, blood pressure 136/91. On Ventimask saturations are 100%. Intake and output for the past 24 hours, 650 in, 1775 out, since midnight, 0 in and 725 out. His central venous pressure (CVP) is showing a good wave form this morning of a central venous pressure (CVP) of 10. Maintenance fluids are now at 100 ml per hour. OBJECTIVE: He is ill-appearing and cachetic. His mucosa is pink. Neck is supple, but muscles are tense. He deviates his head to the left. Heart sounds are regular without appreciable murmur. The central venous pressure (CVP) line is in good position. Some mild hematoma at the site. No induration. Breath sounds diffuse scattered large airway sounds, no rhonchi. Chest is symmetric. There is no accessory muscle engagement with spontaneous respiratory effort. Abdomen is firm, but softener than yesterday. I do appreciate some bowel sounds in the right lower quadrant. G-tube is in place. DIAGNOSTIC STUDIES: White cell count is down to 18.2, hemoglobin is also down to 9.8, hematocrit 31.1, platelet count is stable at 324. Differential white cell count continues to show 84% neutrophils. The electrolytes show a sodium of 138, potassium 3.8, chloride 108, Co2 is 25, BUN of 27, creatinine is down at 0.062, glucose is 51. Lactic acid is down to 1.1 from 3.9. His calcium is 8.6, but the albumin is 2.6. Phosphorus is 2.5. The AST is down slightly at 47, ALT 55, alkaline phosphatase is 105. The LDH is 188. Arterial blood gases were performed this morning and the pH is 7.38, pCO2 32, pO2 95. Coagulation studies done yesterday showed an INR of 1.17, fibrinogen of 410. Chest imaging was reviewed. The lungs are well inflated. There are no new infiltrates. Central venous catheter is noted entering the subclavian circulation ending in the jugular circulation. Medications reviewed. He is receiving IV Zosyn and fluconazole, subcutaneous Lovenox and D5 at 100 ml per hour. PRIMARY PROBLEM REQUIRING CRITICAL ATTENTION: 1. Sepsis. The etiology is not entirely clear at this point. I am suspicious of an abdominal pathology and will initiate IV Flagyl in addition to the cephalosporin. 2. Hypoxemia. Will change to an aerosol oxygen delivery system to improve secretion. 3. Obstipation. Will add cathartics as discussed with surgery. 4. Metabolic acidosis. The patient's lactic acid level is down from previous. 5. Deep venous thrombosis (DVT) prophylaxis is being addressed with Lovenox. I have discussed the case with the patient's family at bedside, the attending hospitalist, workers compensation consultant. I have updated the ICU nursing team in regards to the status and care plans for the day. 92 minutes were spent in provision of bedside critical care and coordination, excluding any time for performance of procedures.
--- NOTE | 2020-08-19 14:32 | IPNPDOC ---
Text Note Date of Service The patient was seen on 08/19/20. NOTE Subjective: Patient was somnolent and lethargic in the morning. Afebrile. P atient has high oxygen requirement 8 L via Venti Mask Objective: GENERAL APPEARANCE: Somnolent male, ill looking, cachectic HEENT: no scleral icterus, no JVD, EOMI, central venous pressure (CVP) line in place CARDIOVASCULAR: Tachycardic with 105 LUNGS: Diminished lung sounds bilaterally ABDOMEN: soft & not tender w palpitation, G-tube in place MUSCULOSKELETAL: no cyanosis, no swelling INTEGUMENT: no generalized pallor NEUROLOGICAL: Moves 4 limbs, no nuchal rigidity Assessment and plan Patient is 45 years old male with past medical history of cerebral palsy, dysphagia with PEG tube, GERD, history of fecal impaction presented to hospital with sepsis, large fecal impaction and partial small bowel obstruction Sepsis/metabolic acidosis Patient has a leukocytosis, tachycardia, lactic acidosis and dyspnea on admission Procalcitonin significantly elevated to 127 Most likely secondary to bacterial translocation from bowels secondary to small bowel obstruction and large fecal impaction. CT showed Large fecal impaction. Partial small bowel obstruction or focal ileus MRSA negative, vancomycin discontinued Continue Zosyn IV day 2 , metronidazole IV added 1 set of blood culture from yesterday positive for gram-negative rods Continue IV fluid lactic acidosis resolved Partial small bowel obstruction/large bowel obstruction/fecal impaction Surgical team on board, recommended NG tube with intermittent suction, soapsuds enema The patient had 2 soapsuds enemas yesterday with results a small amount of stool. G-tube drainage 1325 mL Dysphagia G/J-tube in place. N.p.o. for now ANTONETTE Most likely prerenal secondary to intravascular depletion Continue to monitor Resolved Hyperkalemia Resolved Transaminitis Improved. Most likely secondary to fluconazole therapy Hepatitis panel negative Pneumonitis CT showed Diffuse pneumonitis. Bronchiolitis/vasculitis among the considerations . No evidence of interstitial fibrosis which might be expected with connective tissue related disease. 2. Dilated fluid-filled esophagus. Findings suggest a severe gastroesophageal reflux, achalasia or scleroderma Pulmonology team on board VS,Fishbone, I+O VS, Fishbone, I+O Laboratory Tests 08/18/20 15:57 08/18/20 20:12 08/18/20 22:40 08/19/20 05:24 Vital Signs Date Time Temp Pulse Resp B/P (MAP) Pulse Ox O2 Delivery O2 Flow Rate FiO2 08/19/20 11:05 100 131/85 (100) 100 Venturi Mask 8.0 31 08/19/20 08:00 99.2 22 I&O- Last 24 Hours up to 6 AM 08/19/20 06:00 Intake Total 490 ml Output Total 2500 ml Balance -2009 ml LILI RICH DO Aug 19, 2020 14:32
[2020-08-19] MEDS: FLUCONAZOLE 200 MG in IV 1 EA IV SCH (17:58)
[2020-08-19] MEDS: LORazepam 2 MG/ML VIAL IV PRN (20:30)
[2020-08-20] VITALS (13 sets, daily range): BP systolic 118–165; BP diastolic 73–98
[2020-08-20] MEDS: PIPERACILLIN/TAZOBACTAM SOD 3.375 GM in D5W MINI-BAG PLUS 50 ML IV SCH ×5 (00:17→23:15)
--- NOTE | 2020-08-20 00:22 | IPNPDOC ---
Text Note Date of Service The patient was seen on 08/20/20. NOTE TIME OF SERVICE 1221AM I was informed by the patient's RN Cathy that gatric contents had become maroon in color. PE: pt is asleep / NG contents are cherise Labs reviewed:Hg trending down #Possible UGIB / stress Ulcer ? Plan: f/u AM labs now, iron panel, guiac of gastric contents and coags / pending results may start IV PPI VS,Fishbone, I+O VS, Fishbone, I+O Laboratory Tests 08/19/20 05:24 Vital Signs Date Time Temp Pulse Resp B/P (MAP) Pulse Ox O2 Delivery O2 Flow Rate FiO2 08/19/20 23:00 89 144/88 (106) 94 Aerosol Mask 5.0 28 08/19/20 20:00 97.9 20 I&O- Last 24 Hours up to 6 AM 08/20/20 06:00 Intake Total 1380 ml Output Total 1015 ml Balance 365 ml NISHA ROBERTS MD Aug 20, 2020 00:22
[2020-08-20 01:30] LABS: BASO # 0.1 10^3/uL (0.0-0.2); BASO % 0.4 % (0.0-1.0); EOS # 0.1 10^3/uL (0.0-0.5); HEMATOCRIT 29.1 % (42.0-52.0); HEMOGLOBIN 9.4 g/dl (13.5-17.5); LYMPH # 0.8 10^3/uL (1.5-5.0); LYMPH % 7.4 % (24.0-44.0); MEAN CORPUSCULAR HEMOGLOBIN 26.6 pg (27.0-33.0); MEAN CORPUSCULAR HGB CONC 32.3 g/dl (32.0-36.5); MEAN CORPUSCULAR VOLUME 82.2 fl (80.0-96.0); MONO # 0.4 10^3/uL (0.0-0.8); MONO % 3.6 % (2.0-8.0); NEUTROPHILS # 9.8 10^3/uL (1.5-8.5); NEUTROPHILS % 87.2 % (36.0-66.0); PLATELET COUNT, AUTOMATED 299 10^3/uL (150-450); RED BLOOD COUNT 3.54 10^6/uL (4.30-6.10); WHITE BLOOD COUNT 11.3 10^3/uL (4.0-10.0)
[2020-08-20 01:41] LABS: INR 1.14; PROTHROMBIN TIME 14.9 SECONDS (12.5-14.3)
[2020-08-20] MEDS: metroNIDAZOLE 500 MG in IV 1 EA IV SCH ×3 (03:17→19:12)
[2020-08-20 07:35] LABS: ALT/SGPT 45 U/L (12-78); CALCIUM LEVEL 7.8 MG/DL (8.5-10.1); CARBON DIOXIDE LEVEL 26 MEQ/L (21-32); CHLORIDE LEVEL 108 MEQ/L (98-107); CPK CREATINE PHOSPHOKINASE 76 U/L (39-308); GLOMERULAR FILTRATION RATE > 60.0 (>60); GLUCOSE, FASTING 81 MG/DL (70-100); LDH LACTATE DEHYDROGENASE 170 U/L (87-241); POTASSIUM SERUM 3.4 MEQ/L (3.5-5.1); SODIUM LEVEL 140 MEQ/L (136-145)
[2020-08-20 07:36] LABS: ALBUMIN 2.3 GM/DL (3.2-5.2); BILIRUBIN,TOTAL 0.5 MG/DL (0.2-1.0); BLOOD UREA NITROGEN 12 MG/DL (7-18); CHOLESTEROL LEVEL 66 MG/DL (< 200); FERRITIN 65 NG/ML (26-388); IRON (FE) 53 UG/DL (65-175); PERCENT SATURATION 20.1 % (19.7-50.0); PHOSPHORUS LEVEL 1.3 MG/DL (2.5-4.9); TOTAL IRON BINDING CAPACITY 264 UG/DL (250-450); TOTAL PROTEIN 5.1 GM/DL (6.4-8.2); TRIGLYCERIDES LEVEL 80 MG/DL (<150)
--- NOTE | 2020-08-20 07:54 | REP ---
INDICATION: sepsis. COMPARISON: Comparison chest x-ray August 19, 2020. TECHNIQUE: Portable upright AP chest radiograph. FINDINGS: A nasogastric tube is seen entering left upper quadrant. There appears to be a feeding gastrostomy tube is well. EKG electrodes are seen. There is a dextroconvex curvature in the thoracic spine. Diffuse osteopenia is noted. There is an infiltrate in the left lower lobe distribution unchanged from the 20 August 2019 study. A right subclavian central venous catheter ascends in the neck consistent with position and internal jugular vein.. IMPRESSION: Left lower lobe infiltrate persists. Nasogastric, gastrostomy, and right central venous catheters are seen. The right central venous catheter extends cephalad in the neck off the top of the field of view.. <Electronically signed by Giorgio Vasques > 08/20/20 [id number]
[2020-08-20 08:08] LABS: VITAMIN B12 LEVEL 1645 PG/ML (247-911)
[2020-08-20 08:10] LABS: FOLATE 19.4 NG/ML (>5.4)
[2020-08-20] MEDS ORDERED: POTASSIUM CHLORIDE 10% LIQ 20 MEQ/15 ML UDC PO ONE (08:15)
[2020-08-20] MEDS: D5W/0.45% SODIUM CHLORIDE 1,000 ML IV SCH ×2 (09:19→19:12)
[2020-08-20] MEDS: MOM 30ML SUSPENSION UDC PO SCH ×2 (09:20→20:10)
[2020-08-20] MEDS: PANTOPRAZOLE 40MG VIAL (C9113 PER 1) IV SCH ×2 (09:20→20:10)
[2020-08-20] MEDS: MIRALAX *UNIT DOSE* 17GM PACKET PO SCH ×2 (09:21→20:10)
[2020-08-20] MEDS: ENOXAPARIN 30MG/0.3ML SYRINGE (J1650 PER 10MG) SC SCH (09:21)
[2020-08-20] MEDS: DOCUSATE SOD LIQ 100MG/10ML UDC PO SCH ×2 (09:23→20:11)
[2020-08-20] MEDS ORDERED: POTASSIUM PHOSPHATE INJ 30 MMOL in D5W 500 ML IV ONE (10:00)
[2020-08-20] MEDS: LORazepam 2 MG/ML VIAL IV PRN ×2 (12:53→20:10)
--- NOTE | 2020-08-20 13:34 | CCN ---
CRITICAL CARE NOTE DATE: 08/20/2020 SUBJECTIVE: Patient was seen and examined this morning during bedside rounds. Overnight and earlier this morning, the patient had very small bowel movement reportedly with some pasty stool. He appears to have had some improvement in his abdominal distention. The patient did have an episode overnight with NG-tube contents becoming more maroon in color. His guaiac panel sent from the NG-tube output was positive. The patient otherwise appears to be closer to his baseline as per his family who is at bedside. He is nonverbal, mostly at baseline and appears to intermittently be following commands. OBJECTIVE: VITAL SIGNS: Temperature is 97.9, pulse is 91, respirations are 22, blood pressure is 131/73, O2 sat is 92% on Ventimask at 28% FIO2. INPUT AND OUTPUT: Ins 1.3 liters, out 1.7 liters. GENERAL: Patient is cachectic and chronically ill-appearing. He has contractures of his extremities noted related to his cerebral palsy. HEENT: Normocephalic, atraumatic. There is temporal wasting. NECK: Supple but the muscles are tense. He does have his head deviated and has a padded head rest in place. There is a right subclavian line in place. CARDIAC: Regular rate and rhythm. Normal S1 and S2. Unable to clearly auscultate any murmurs. PULMONARY: There are coarse large airway breath sounds noted with some occasional upper airway gurgling and occasional rhonchi. No wheezing noted. No crackles. ABDOMEN: Firm but appears softer, reportedly is less distended. There are bowel sounds present. There is a PEG-tube in place. EXTREMITIES: There is no significant lower extremity edema noted bilaterally. There is muscle wasting noted in his extremities as well as some contractures related to his cerebral palsy. LABORATORY DATA: WBC 11.3, hemoglobin 9.4, platelets are 299,000. Chemistries: Sodium was 140, potassium is 3.4, chloride is 108, bicarbonate is 26, BUN 12, and creatinine 0.40, glucose is 81. Phosphorus is 1.3, calcium is 7.8. AST and ALT are 39 and 45, INR was 1.14. Chest x-ray this morning shows right subclavian line coursing up into the right IJ. There are some nodular opacities noted more in the left base. There is an NG-tube in place coursing below the diaphragm. There is a PEG tube in place as well. ASSESSMENT AND PLAN: Mr. Montgomery is a 45-year-old male with a history of cerebral palsy and previous history of dysphagia status post PEG tube placement. He has a history of chronic constipation and presented with complaints of increasing abdominal distention and vomiting secondary to constipation with fecal impaction. 1. Constipation with fecal impaction - appreciate surgery consult and recommendations. The patient has been getting Miralax and did also have a soapsuds enema yesterday. He appeared to have overnight episode of soft pasty stool and another episode this morning of soft pasty stool. He was given additional Miralax this morning. If patient does not have more significant bowel movement, then will likely get a repeat enema later this afternoon 2. Sepsis, likely secondary to intraabdominal source. Patient is on Flagyl and Zosyn for broad-spectrum antibiotic coverage. He does have improvement in his leukocytosis. His procalcitonin was very significantly elevated. would continue to trend procalcitonin to help in aid in further deescalation of his antibiotics. 3. Anemia. Patient was noted to have some maroon colored output from his NG- tube. He did also have a trend down in his H and H this morning. Suspect he may have a component of upper GI bleed possibly secondary to the NG-tube trauma. Would start PPI b.i.d. IV and would ensure NG-tube is with low wall intermittent suction. 4. Metabolic acidosis with a lactic acidosis. Patient's lactic acid has improved. His acidosis has also resolved. He was on fluids with D5-NS but is noted to have some increasing chloride. Would change his maintenance fluids to D5 half NS. Will continue to monitor electrolytes and replete as needed. Will continue to monitor his urine output and renal function. DVT prophylaxis. Lovenox. Code status: Full code. Total critical care time spent not including procedures approximately 50 minutes. Please do not hesitate to call if any further questions or concerns MTDD
--- NOTE | 2020-08-20 13:55 | IPNPDOC ---
Text Note Date of Service The patient was seen on 08/20/20. NOTE Subjective: Patient is more awake and alert in the morning. Patient had 2 small bowel movements overnight Objective: GENERAL APPEARANCE: Cachectic male with cerebral palsy HEENT: no scleral icterus, no JVD, EOMI, central venous pressure (CVP) line in place CARDIOVASCULAR: S1-S2 LUNGS: Diminished lung sounds bilaterally ABDOMEN: soft & not tender w palpitation, G-tube in place MUSCULOSKELETAL: no cyanosis, no swelling INTEGUMENT: no generalized pallor NEUROLOGICAL: Moves 4 limbs, no nuchal rigidity Assessment and plan Patient is 45 years old male with past medical history of cerebral palsy, dysphagia with PEG tube, GERD, history of fecal impaction presented to hospital with sepsis, large fecal impaction and partial small bowel obstruction Sepsis/metabolic acidosis Patient had a leukocytosis, tachycardia, lactic acidosis and dyspnea on admission Procalcitonin significantly elevated to 127 Most likely secondary to bacterial translocation from bowels secondary to small bowel obstruction and large fecal impaction. CT showed Large fecal impaction. Partial small bowel obstruction or focal ileus Continue Zosyn IV day 3 , metronidazole IV day2 1 set of blood culture positive for gram-negative rods, await repeated blood culture Continue IV fluid D5 and half of normal saline lactic acidosis resolved GI bleed Patient had mottling discharged from NG tube Started PPI twice daily Partial small bowel obstruction/large bowel obstruction/fecal impaction Surgical team on board, recommended NG tube with low intermittent suction, soapsuds enema and MiraLAX Trial of fecal disimpaction Dysphagia G/J-tube in place. N.p.o. for now ANTONETTE Most likely prerenal secondary to intravascular depletion Continue to monitor Resolved Hyperkalemia Resolved Transaminitis Improved. Most likely secondary to fluconazole therapy Hepatitis panel negative Pneumonitis CT showed Diffuse pneumonitis. Bronchiolitis/vasculitis among the considerations. No evidence of interstitial fibrosis which might be expected with connective tissue related disease. 2. Dilated fluid-filled esophagus. Findings suggest a severe gastroesophageal reflux, achalasia or scleroderma Pulmonology team on board VS,Paul, I+O VS, Paul, I+O Laboratory Tests 08/20/20 00:22 08/20/20 00:56 Vital Signs Date Time Temp Pulse Resp B/P (MAP) Pulse Ox O2 Delivery O2 Flow Rate FiO2 08/20/20 10:00 88 22 165/87 (113) 95 Aerosol Mask 5.0 28 08/20/20 08:00 99.4 I&O- Last 24 Hours up to 6 AM 08/20/20 06:00 Intake Total 1380 ml Output Total 1765 ml Balance -385 ml LILI RICH DO Aug 20, 2020 13:55
[2020-08-20] MEDS: FLUCONAZOLE 200 MG in IV 1 EA IV SCH (17:40)
[2020-08-20] MEDS ORDERED: LORazepam 2 MG/ML VIAL As Ordered ONE (20:09)
[2020-08-20] MEDS: SCOPOLAMINE 1MG TRANSDERMAL PATCH TOP SCH (21:26)
[2020-08-21] VITALS: BP 159/90
[2020-08-21] MEDS: metroNIDAZOLE 500 MG in IV 1 EA IV SCH ×2 (03:48→12:16)
[2020-08-21] MEDS: D5W/0.45% SODIUM CHLORIDE 1,000 ML IV SCH ×3 (03:48→19:00)
[2020-08-21 04:00] VITALS: BP 121/67
[2020-08-21] MEDS: LORazepam 2 MG/ML VIAL IV PRN ×2 (04:35→13:55)
[2020-08-21 04:40] LABS: BASO % 0.6 % (0.0-1.0); EOS % 0.2 % (0.0-3.0); HEMATOCRIT 31.7 % (42.0-52.0); HEMOGLOBIN 10.1 g/dl (13.5-17.5); LYMPH # 0.7 10^3/uL (1.5-5.0); LYMPH % 12.4 % (24.0-44.0); MEAN CORPUSCULAR HEMOGLOBIN 26.2 pg (27.0-33.0); MEAN CORPUSCULAR HGB CONC 31.9 g/dl (32.0-36.5); MEAN CORPUSCULAR VOLUME 82.1 fl (80.0-96.0); MONO # 0.4 10^3/uL (0.0-0.8); MONO % 6.9 % (2.0-8.0); NEUTROPHILS # 4.1 10^3/uL (1.5-8.5); NEUTROPHILS % 79.1 % (36.0-66.0); PLATELET COUNT, AUTOMATED 258 10^3/uL (150-450); RED BLOOD COUNT 3.86 10^6/uL (4.30-6.10); WHITE BLOOD COUNT 5.2 10^3/uL (4.0-10.0)
[2020-08-21] MEDS: PIPERACILLIN/TAZOBACTAM SOD 3.375 GM in D5W MINI-BAG PLUS 50 ML IV SCH ×3 (05:11→18:46)
[2020-08-21 05:13] LABS: ALBUMIN 2.1 GM/DL (3.2-5.2); ALT/SGPT 36 U/L (12-78); BILIRUBIN,TOTAL 0.2 MG/DL (0.2-1.0); BLOOD UREA NITROGEN 5 MG/DL (7-18); CALCIUM LEVEL 7.9 MG/DL (8.5-10.1); CARBON DIOXIDE LEVEL 28 MEQ/L (21-32); CHLORIDE LEVEL 110 MEQ/L (98-107); CHOLESTEROL LEVEL 56 MG/DL (< 200); CPK CREATINE PHOSPHOKINASE 56 U/L (39-308); CREATININE FOR GFR 0.42 MG/DL (0.70-1.30); GLOMERULAR FILTRATION RATE > 60.0 (>60); GLUCOSE, FASTING 99 MG/DL (70-100); LDH LACTATE DEHYDROGENASE 162 U/L (87-241); PHOSPHORUS LEVEL 1.8 MG/DL (2.5-4.9); POTASSIUM SERUM 3.9 MEQ/L (3.5-5.1); SODIUM LEVEL 141 MEQ/L (136-145); TOTAL PROTEIN 5.4 GM/DL (6.4-8.2); TRIGLYCERIDES LEVEL 70 MG/DL (<150)
[2020-08-21 08:00] VITALS: BP 140/73
--- NOTE | 2020-08-21 08:40 | REP ---
INDICATION: sepsis. COMPARISON: 08/20/2020, 08/19/2020 TECHNIQUE: AP portable seated FINDINGS: Right subclavian catheter again seen extending superiorly in the neck with tip off the field of view as before. There is a nasogastric tube into the stomach. The proximal port of the tube is below the GE junction. Lungs are marginally adequate the degree of inflation. The left lower lobe infiltrate is again seen, not significantly changed. No gross effusion. Lung petit with underlying fibrosis coarsening of interstitial markings, stable. Bones appear unchanged. IMPRESSION: 1. Nasogastric tube as described and the right subclavian catheter extending superiorly in the neck with its tip off the field as on previous studies. 2. Left lower lobe infiltrate unchanged. Stable exam with no gross effusion. <Electronically signed by Michael Bird > 08/21/20 0868
[2020-08-21] MEDS: MOM 30ML SUSPENSION UDC PO SCH ×2 (09:43→21:24)
[2020-08-21] MEDS: DOCUSATE SOD LIQ 100MG/10ML UDC PO SCH ×2 (09:43→21:24)
[2020-08-21] MEDS: MIRALAX *UNIT DOSE* 17GM PACKET PO SCH ×2 (09:43→21:25)
[2020-08-21] MEDS: PANTOPRAZOLE 40MG VIAL (C9113 PER 1) IV SCH ×2 (09:43→21:24)
[2020-08-21] MEDS: ENOXAPARIN 30MG/0.3ML SYRINGE (J1650 PER 10MG) SC SCH (09:44)
--- NOTE | 2020-08-21 10:35 | IPNPDOC ---
Text Note Date of Service The patient was seen on 08/21/20. NOTE Subjective: Patient is doing better today, more responsive. Patient had mult iple bowel movements overnight. No fever or chills Objective: GENERAL APPEARANCE: Cachectic male with cerebral palsy HEENT: no scleral icterus, no JVD, EOMI, central venous pressure (CVP) line in place CARDIOVASCULAR: S1-S2 LUNGS: Diminished lung sounds bilaterally ABDOMEN: soft & not tender w palpitation, G-tube in place MUSCULOSKELETAL: no cyanosis, no swelling INTEGUMENT: no generalized pallor NEUROLOGICAL: Moves 4 limbs, no nuchal rigidity Assessment and plan Patient is 45 years old male with past medical history of cerebral palsy, dysphagia with PEG tube, GERD, history of fecal impaction presented to hospital with sepsis, large fecal impaction and partial small bowel obstruction Sepsis/metabolic acidosis Patient had a leukocytosis, tachycardia, lactic acidosis and dyspnea on adm ission Procalcitonin significantly elevated to 127 Most likely secondary to bacterial translocation from bowels secondary to small bowel obstruction and large fecal impaction. CT showed Large fecal impaction. Partial small bowel obstruction or focal ileus Continue Zosyn IV day 4 , metronidazole IV day 3 1 set of blood culture positive for gram-negative rods, repeated blood culture negative Continue IV fluid D5 and half of normal saline lactic acidosis resolved. Today sepsis resolved, white blood count within normal limit, patient normotensive, not tachycardic GI bleed Patient had mottling discharged from NG tube Started PPI twice daily Partial small bowel obstruction/large bowel obstruction/fecal impaction Surgical team on board Surgical team will clamp NG tube today Dysphagia G/J-tube in place. N.p.o. for now ANTONETTE Most likely prerenal secondary to intravascular depletion Continue to monitor Resolved Hyperkalemia Resolved Transaminitis Improved. Most likely secondary to fluconazole therapy Hepatitis panel negative Pneumonitis CT showed Diffuse pneumonitis. Bronchiolitis/vasculitis among the considerations. No evidence of interstitial fibrosis which might be expected with connective tissue related disease. 2. Dilated fluid-filled esophagus. Findings suggest a severe gastroesophageal reflux, achalasia or scleroderma Pulmonology team on board VS,Paul, I+O VSPaul, I+O Laboratory Tests 08/21/20 04:24 Vital Signs Date Time Temp Pulse Resp B/P (MAP) Pulse Ox O2 Delivery O2 Flow Rate FiO2 08/21/20 04:00 97.6 78 14 121/67 (85) 100 Nasal Cannula 2.0 08/21/20 04:00 28 I&O- Last 24 Hours up to 6 AM 08/21/20 06:00 Intake Total 2890 ml Output Total 1490 ml Balance 1400 ml LILI RICH DO Aug 21, 2020 10:35
[2020-08-21 12:00] VITALS: BP 127/70
[2020-08-21 16:00] VITALS: BP 130/90
[2020-08-21] MEDS: SIMETHICONE 40MG/0.6ML DROPS 30ML GT SCH ×3 (16:08→21:25)
--- NOTE | 2020-08-21 17:24 | IPN ---
PROGRESS NOTE DATE: 08/20/2020 SUBJECTIVE: Patient seems to have made some progress overnight and nasogastric (NG) tube output has been very minimal but, more importantly, what we are seeing is stool output has increased. He is looking less septic and his white count has come down to 11.3. PHYSICAL EXAMINATION: ABDOMINAL EXAM: I still feel the stool within the midline, but it is much less than it was before, much less firm and mobile, and the diameter is much less than it was previously. IMPRESSION/PLAN: Patient's sepsis seems to be improving as per medicine and from my standpoint, his abdominal issues are also improving. I do feel that we need to continue with being aggressive with his stools, i.e., possibly some more enemas, increasing his stool softener issues and seeing if we can keep him evacuated adequately. If we are able to, I do feel that then we may be able to discontinue his nasogastric (NG) tube tomorrow and then start up his tube feeds.
[2020-08-21] MEDS: FLUCONAZOLE 200 MG in IV 1 EA IV SCH (17:35)
--- NOTE | 2020-08-21 17:35 | IPN ---
PROGRESS NOTE DATE: 08/21/2020 SUBJECTIVE: Patient's white count has normalized this morning and overall is more awake and more easily stimulated. His nasogastric (NG) tube really put out minimal, mostly secretions. No other significant lower gastrointestinal (GI) issues are appreciated at this time. He had a bunch of bowel movements yesterday, but his abdomen is still softly distended, tympanitic, but nontender. IMPRESSION/PLAN: It is hard to tell if this is aerophagia that is contributing to the mild abdominal distension, given it is relatively tympanitic and, with the bowel movements, I do feel that there were resolving issues. His NG tube output is minimal, thus I do feel removing the NG tube is reasonable. Keeping the gastrostomy (G) tube, the gravity is also reasonable. The question is whether jejunostomy (J) tube feeds are reasonable to start up today, or should they be postponed until tomorrow. We will see how he does with some time this morning and if he is tolerating this and we do not have increasing G tube output, then I would recommend starting up tube feeds at his normal amounts. I anticipate the best way to start with him would be 25 mL/h of Jevity on a continuous pump while he is in the hospital to keep things regulated.
[2020-08-21 20:00] VITALS: BP 132/64
[2020-08-21] MEDS ORDERED: diphenhydrAMINE 50MG/ML VIAL (J1200) IV PRN (21:40)
[2020-08-21] MEDS ORDERED: diphenhydrAMINE 50MG/ML VIAL (J1200) As Ordered ONE (21:43)
[2020-08-22] VITALS: BP 117/85
[2020-08-22 04:00] VITALS: BP 106/64
[2020-08-22] MEDS: D5W/0.45% SODIUM CHLORIDE 1,000 ML IV SCH ×2 (05:32→10:40)
[2020-08-22] MEDS: PIPERACILLIN/TAZOBACTAM SOD 3.375 GM in D5W MINI-BAG PLUS 50 ML IV SCH ×6 (05:32→23:47)
[2020-08-22 05:50] LABS: BASO % 0.8 % (0.0-1.0); EOS % 0.6 % (0.0-3.0); LYMPH # 1.1 10^3/uL (1.5-5.0); LYMPH % 21.4 % (24.0-44.0); MEAN CORPUSCULAR HEMOGLOBIN 26.1 pg (27.0-33.0); MEAN CORPUSCULAR HGB CONC 32.3 g/dl (32.0-36.5); MEAN CORPUSCULAR VOLUME 80.9 fl (80.0-96.0); MONO # 0.5 10^3/uL (0.0-0.8); MONO % 10.4 % (2.0-8.0); NEUTROPHILS # 3.3 10^3/uL (1.5-8.5); NEUTROPHILS % 65.8 % (36.0-66.0); PLATELET COUNT, AUTOMATED 251 10^3/uL (150-450); RED BLOOD COUNT 3.83 10^6/uL (4.30-6.10)
[2020-08-22 06:16] LABS: ALBUMIN 2.1 GM/DL (3.2-5.2); ALT/SGPT 33 U/L (12-78); BILIRUBIN,TOTAL 0.3 MG/DL (0.2-1.0); BLOOD UREA NITROGEN 5 MG/DL (7-18); CALCIUM LEVEL 7.7 MG/DL (8.5-10.1); CARBON DIOXIDE LEVEL 29 MEQ/L (21-32); CHLORIDE LEVEL 106 MEQ/L (98-107); CHOLESTEROL LEVEL 55 MG/DL (< 200); CPK CREATINE PHOSPHOKINASE 64 U/L (39-308); GLOMERULAR FILTRATION RATE > 60.0 (>60); GLUCOSE, FASTING 102 MG/DL (70-100); LDH LACTATE DEHYDROGENASE 161 U/L (87-241); PHOSPHORUS LEVEL 2.4 MG/DL (2.5-4.9); POTASSIUM SERUM 3.3 MEQ/L (3.5-5.1); SODIUM LEVEL 139 MEQ/L (136-145); TOTAL PROTEIN 4.8 GM/DL (6.4-8.2); TRIGLYCERIDES LEVEL 69 MG/DL (<150)
[2020-08-22] MEDS ORDERED: KCL 10MEQ/100ML SWI (KRUN) 10 MEQ in IV 1 EA IV ONE (08:00)
[2020-08-22] MEDS: DOCUSATE SOD LIQ 100MG/10ML UDC PO SCH ×2 (08:32→20:59)
[2020-08-22] MEDS: MOM 30ML SUSPENSION UDC PO SCH ×2 (08:33→20:59)
[2020-08-22] MEDS: MIRALAX *UNIT DOSE* 17GM PACKET PO SCH ×2 (08:33→21:00)
[2020-08-22] MEDS: PANTOPRAZOLE 40MG VIAL (C9113 PER 1) IV SCH ×2 (08:45→20:02)
[2020-08-22] MEDS: ENOXAPARIN 30MG/0.3ML SYRINGE (J1650 PER 10MG) SC SCH (08:45)
[2020-08-22] MEDS: SIMETHICONE 40MG/0.6ML DROPS 30ML GT SCH ×4 (08:46→22:14)
[2020-08-22 08:59] VITALS: BP 104/55
--- NOTE | 2020-08-22 10:42 | REPVR ---
PROCEDURE INFORMATION: Exam: XR Chest Exam date and time: 08/22/2020 6:54 AM Age: 45 years old Clinical indication: Shortness of breath; Additional info: Sepsis TECHNIQUE: Imaging protocol: XR of the chest. Views: 1 view. COMPARISON: [facility] PORTABLE CHEST X-RAY 08/21/2020 7:14 AM FINDINGS: Tubes, catheters and devices: Right subclavian central venous catheter again identified ascending into the right internal jugular vein, with distal tip not visualized. Interval removal of feeding tube. Lungs: Emphysematous change, interstitial prominence, and mild left basilar airspace disease. Pleural spaces: No pleural effusion. Heart/Mediastinum: Normal configuration of the heart. Bones/joints: Scoliosis. Osteopenia. IMPRESSION: 1. Emphysematous change, interstitial prominence, and mild left basilar airspace disease. 2. Right subclavian central venous catheter again identified ascending into the right internal jugular vein, with distal tip not visualized. Electronically signed by: Zack Clark On 08/22/2020 10:41:39 AM
--- NOTE | 2020-08-22 10:46 | IPNPDOC ---
Text Note Date of Service The patient was seen on 08/22/20. NOTE Subjective: Patient is alert and awake today. Patient had multiple bowel mov ements overnight. No fever or chills Objective: GENERAL APPEARANCE: Cachectic male with cerebral palsy HEENT: no scleral icterus, no JVD, EOMI, central venous pressure (CVP) line in place CARDIOVASCULAR: S1-S2 LUNGS: Diminished lung sounds bilaterally ABDOMEN: soft & not tender w palpitation, G-tube in place MUSCULOSKELETAL: no cyanosis, no swelling INTEGUMENT: no generalized pallor NEUROLOGICAL: Moves 4 limbs, no nuchal rigidity Assessment and plan Patient is 45 years old male with past medical history of cerebral palsy, dysphagia with PEG tube, GERD, history of fecal impaction presented to hospital with sepsis, large fecal impaction and partial small bowel obstruction Sepsis/metabolic acidosis Patient had a leukocytosis, tachycardia, lactic acidosis and dyspnea on admission Procalcitonin significantly elevated to 127 Most likely secondary to bacterial translocation from bowels secondary to small bowel obstruction and large fecal impaction. CT showed Large fecal impaction. Partial small bowel obstruction or focal ileus Continue Zosyn IV day 5 1 set of blood culture positive for gram-negative rods, repeated blood culture negative Continue IV fluid D5 and half of normal saline lactic acidosis resolved. Sepsis resolved, white blood count within normal limit, patient normotensive, not tachycardic GI bleed Patient had mottling discharged from NG tube Continue PPI twice daily. Hemoglobin stable Partial small bowel obstruction/large bowel obstruction/fecal impaction Surgical team on board NG tube was removed yesterday Surgical team recommended to start feeding via G tube Dysphagia G/J-tube in place. ANTONETTE Most likely prerenal secondary to intravascular depletion Continue to monitor Resolved Hyperkalemia Resolved Transaminitis Improved. Most likely secondary to fluconazole therapy Hepatitis panel negative Pneumonitis CT showed Diffuse pneumonitis. Bronchiolitis/vasculitis among the considerations. No evidence of interstitial fibrosis which might be expected with connective tissue related disease. 2. Dilated fluid-filled esophagus. Findings suggest a severe gastroesophageal reflux, achalasia or scleroderma Pulmonology team on board VS,Paul, I+O VS, Evangelinae, I+O Laboratory Tests 08/22/20 05:26 Vital Signs Date Time Temp Pulse Resp B/P (MAP) Pulse Ox O2 Delivery O2 Flow Rate FiO2 08/22/20 08:59 98.3 86 20 104/55 (71) 94 Room Air 08/21/20 15:33 2.0 08/21/20 04:00 28 I&O- Last 24 Hours up to 6 AM 08/22/20 06:00 Intake Total 2600 ml Output Total 1050 ml Balance 1550 ml LILI RICH DO Aug 22, 2020 10:46
[2020-08-22] MEDS ORDERED: LACTOBACILLUS ACIDOPHILUS CAP (BACID) PO SCH (11:00)
[2020-08-22 12:00] VITALS: BP 101/63
[2020-08-22] MEDS: LACTOBACILLUS ACIDOPHILUS CAP (BACID) PEG SCH (12:22)
--- NOTE | 2020-08-22 14:25 | IPN ---
PROGRESS NOTE DATE: 08/22/2020 SUBJECTIVE: Patient has had multiple bowel movements and, from an abdominal distention standpoint, has improved. His respiratory issues have improved and overall, his white count is stable as well. PHYSICAL EXAMINATION: ABDOMEN: Softly distended, somewhat tympanitic, but without guarding or rebound and the stool that was appreciated along the midline is no longer present. IMPRESSION/PLAN: Patient has resolving constipation/obstipation issues and I would recommend continuing with current treatment and will order some tube feedings for him. I anticipate if he tolerates this overnight, he should be able to be discharged tomorrow and would recommend continuing on the routine medications, et cetera.
[2020-08-22 16:00] VITALS: BP 104/61
[2020-08-22] MEDS: LORazepam 2 MG/ML VIAL IV PRN ×2 (16:56→20:02)
[2020-08-22] MEDS: FLUCONAZOLE 200 MG in IV 1 EA IV SCH (17:06)
[2020-08-22 20:00] VITALS: BP 111/77
[2020-08-23 00:05] VITALS: BP 110/76
[2020-08-23 04:30] VITALS: BP 109/74
[2020-08-23] MEDS: PIPERACILLIN/TAZOBACTAM SOD 3.375 GM in D5W MINI-BAG PLUS 50 ML IV SCH ×4 (05:32→23:59)
[2020-08-23] MEDS: D5W/0.45% SODIUM CHLORIDE 1,000 ML IV SCH ×2 (05:34→16:26)
[2020-08-23 08:00] VITALS: BP 105/73
[2020-08-23] MEDS: MOM 30ML SUSPENSION UDC PO SCH ×2 (09:00→21:00)
[2020-08-23] MEDS: MIRALAX *UNIT DOSE* 17GM PACKET PO SCH ×2 (09:00→21:00)
[2020-08-23] MEDS: DOCUSATE SOD LIQ 100MG/10ML UDC PO SCH ×2 (09:00→21:00)
[2020-08-23 09:31] LABS: BASO % 0.3 % (0.0-1.0); EOS # 0.2 10^3/uL (0.0-0.5); EOS % 1.7 % (0.0-3.0); HEMOGLOBIN 10.4 g/dl (13.5-17.5); LYMPH # 1.4 10^3/uL (1.5-5.0); LYMPH % 15.5 % (24.0-44.0); MEAN CORPUSCULAR HEMOGLOBIN 25.4 pg (27.0-33.0); MEAN CORPUSCULAR HGB CONC 31.5 g/dl (32.0-36.5); MEAN CORPUSCULAR VOLUME 80.7 fl (80.0-96.0); MONO # 1.4 10^3/uL (0.0-0.8); MONO % 16.1 % (2.0-8.0); NEUTROPHILS # 5.9 10^3/uL (1.5-8.5); PLATELET COUNT, AUTOMATED 322 10^3/uL (150-450); RED BLOOD COUNT 4.09 10^6/uL (4.30-6.10)
[2020-08-23 09:49] LABS: ALBUMIN 2.1 GM/DL (3.2-5.2); ALT/SGPT 33 U/L (12-78); BILIRUBIN,TOTAL 0.2 MG/DL (0.2-1.0); BLOOD UREA NITROGEN 6 MG/DL (7-18); CARBON DIOXIDE LEVEL 26 MEQ/L (21-32); CHLORIDE LEVEL 108 MEQ/L (98-107); CHOLESTEROL LEVEL 60 MG/DL (< 200); CPK CREATINE PHOSPHOKINASE 48 U/L (39-308); CREATININE FOR GFR 0.45 MG/DL (0.70-1.30); GLOMERULAR FILTRATION RATE > 60.0 (>60); GLUCOSE, FASTING 127 MG/DL (70-100); LDH LACTATE DEHYDROGENASE 178 U/L (87-241); PHOSPHORUS LEVEL 2.5 MG/DL (2.5-4.9); POTASSIUM SERUM 3.7 MEQ/L (3.5-5.1); SODIUM LEVEL 140 MEQ/L (136-145); TOTAL PROTEIN 5.3 GM/DL (6.4-8.2); TRIGLYCERIDES LEVEL 86 MG/DL (<150)
[2020-08-23] MEDS: SIMETHICONE 40MG/0.6ML DROPS 30ML GT SCH ×4 (10:07→21:25)
[2020-08-23] MEDS: PANTOPRAZOLE 40MG VIAL (C9113 PER 1) IV SCH ×2 (10:08→21:22)
[2020-08-23] MEDS: LACTOBACILLUS ACIDOPHILUS CAP (BACID) PEG SCH (10:08)
[2020-08-23] MEDS: ENOXAPARIN 30MG/0.3ML SYRINGE (J1650 PER 10MG) SC SCH (10:08)
--- NOTE | 2020-08-23 11:28 | IPNPDOC ---
Text Note Date of Service The patient was seen on 08/23/20. NOTE Subjective: Patient is more alert and awake in the morning. No fever or chills overnight. Patient had 1 bowel movement yesterday Objective: GENERAL APPEARANCE: Cachectic male with cerebral palsy HEENT: no scleral icterus, no JVD, EOMI, central venous pressure (CVP) line in place CARDIOVASCULAR: S1-S2 LUNGS: Diminished lung sounds bilaterally ABDOMEN: soft & not tender w palpitation, G-tube in place MUSCULOSKELETAL: no cyanosis, no swelling INTEGUMENT: no generalized pallor NEUROLOGICAL: Moves 4 limbs, no nuchal rigidity Assessment and plan Patient is 45 years old male with past medical history of cerebral palsy, dysphagia with PEG tube, GERD, history of fecal impaction presented to hospital with sepsis, large fecal impaction and partial small bowel obstruction Sepsis/metabolic acidosis Patient had a leukocytosis, tachycardia, lactic acidosis and dyspnea on admission Procalcitonin significantly elevated to 127 Most likely secondary to bacterial translocation from bowels secondary to small bowel obstruction and large fecal impaction. CT showed Large fecal impaction. Partial small bowel obstruction or focal ileus Continue Zosyn IV day 6 1 set of blood culture positive for gram-negative rods, repeated blood culture negative. Sepsis resolved, white blood count within normal limit, patient normotensive, not tachycardic GI bleed Patient had mottling discharged from NG tube Continue PPI twice daily. Hemoglobin stable Partial small bowel obstruction/large bowel obstruction/fecal impaction Surgical team on board Resolved Continue feeding via G tube Dysphagia G/J-tube in place. ANTONETTE Most likely prerenal secondary to intravascular depletion Continue to monitor Resolved Hyperkalemia Resolved Transaminitis Improved. Most likely secondary to fluconazole therapy Hepatitis panel negative Pneumonitis CT showed Diffuse pneumonitis. Bronchiolitis/vasculitis among the considerations. No evidence of interstitial fibrosis which might be expected with connective tissue related disease. 2. Dilated fluid-filled esophagus. Findings suggest a severe gastroesophageal reflux, achalasia or scleroderma Pulmonology team on board Paul CONDON, I+O Paul CONDON, I+O Laboratory Tests 08/23/20 09:17 Vital Signs Date Time Temp Pulse Resp B/P (MAP) Pulse Ox O2 Delivery O2 Flow Rate FiO2 08/23/20 08:00 97.8 86 18 105/73 (84) 92 Room Air 08/21/20 15:33 2.0 08/21/20 04:00 28 I&O- Last 24 Hours up to 6 AM 08/23/20 06:00 Intake Total 2730 ml Output Total 900 ml Balance 1830 ml LILI RICH DO Aug 23, 2020 11:28
[2020-08-23 12:00] VITALS: BP 105/71
[2020-08-23 16:00] VITALS: BP 107/66
[2020-08-23] MEDS: FLUCONAZOLE 200 MG in IV 1 EA IV SCH (16:26)
[2020-08-23] MEDS: LORazepam 2 MG/ML VIAL IV PRN ×2 (17:11→22:35)
[2020-08-23 21:00] VITALS: BP 97/61
[2020-08-23] MEDS: SCOPOLAMINE 1MG TRANSDERMAL PATCH TOP SCH (21:25)
[2020-08-24 00:10] VITALS: BP 101/68
[2020-08-24 04:10] VITALS: BP 96/59
[2020-08-24] MEDS: D5W/0.45% SODIUM CHLORIDE 1,000 ML IV SCH (04:59)
[2020-08-24 05:19] LABS: BASO % 0.3 % (0.0-1.0); EOS # 0.4 10^3/uL (0.0-0.5); EOS % 5.5 % (0.0-3.0); HEMATOCRIT 30.3 % (42.0-52.0); HEMOGLOBIN 9.6 g/dl (13.5-17.5); LYMPH % 27.3 % (24.0-44.0); MEAN CORPUSCULAR HEMOGLOBIN 25.5 pg (27.0-33.0); MEAN CORPUSCULAR HGB CONC 31.7 g/dl (32.0-36.5); MEAN CORPUSCULAR VOLUME 80.4 fl (80.0-96.0); MONO # 1.2 10^3/uL (0.0-0.8); MONO % 16.1 % (2.0-8.0); NEUTROPHILS # 3.8 10^3/uL (1.5-8.5); NEUTROPHILS % 50.3 % (36.0-66.0); PLATELET COUNT, AUTOMATED 338 10^3/uL (150-450); RED BLOOD COUNT 3.77 10^6/uL (4.30-6.10); WHITE BLOOD COUNT 7.5 10^3/uL (4.0-10.0)
[2020-08-24] MEDS: PIPERACILLIN/TAZOBACTAM SOD 3.375 GM in D5W MINI-BAG PLUS 50 ML IV SCH (05:44)
[2020-08-24 06:03] LABS: ALT/SGPT 29 U/L (12-78); BILIRUBIN,TOTAL 0.1 MG/DL (0.2-1.0); BLOOD UREA NITROGEN 7 MG/DL (7-18); CALCIUM LEVEL 7.6 MG/DL (8.5-10.1); CARBON DIOXIDE LEVEL 28 MEQ/L (21-32); CHLORIDE LEVEL 108 MEQ/L (98-107); CHOLESTEROL LEVEL 60 MG/DL (< 200); CPK CREATINE PHOSPHOKINASE 32 U/L (39-308); CREATININE FOR GFR 0.35 MG/DL (0.70-1.30); GLOMERULAR FILTRATION RATE > 60.0 (>60); GLUCOSE, FASTING 103 MG/DL (70-100); LDH LACTATE DEHYDROGENASE 145 U/L (87-241); PHOSPHORUS LEVEL 3.2 MG/DL (2.5-4.9); POTASSIUM SERUM 3.8 MEQ/L (3.5-5.1); SODIUM LEVEL 141 MEQ/L (136-145); TOTAL PROTEIN 5.1 GM/DL (6.4-8.2); TRIGLYCERIDES LEVEL 58 MG/DL (<150)
[2020-08-24 08:00] VITALS: BP 130/76
[2020-08-24] MEDS: ENOXAPARIN 30MG/0.3ML SYRINGE (J1650 PER 10MG) SC SCH (09:34)
[2020-08-24] MEDS: PANTOPRAZOLE 40MG VIAL (C9113 PER 1) IV SCH (09:34)
[2020-08-24] MEDS: LACTOBACILLUS ACIDOPHILUS CAP (BACID) PEG SCH (09:34)
[2020-08-24] MEDS: DOCUSATE SOD LIQ 100MG/10ML UDC PO SCH (09:34)
[2020-08-24] MEDS: MOM 30ML SUSPENSION UDC PO SCH (09:34)
[2020-08-24] MEDS: MIRALAX *UNIT DOSE* 17GM PACKET PO SCH (09:34)
[2020-08-24] MEDS ORDERED: SCOP1PAT2 TOP (10:33)
[2020-08-24] MEDS ORDERED: DOCU10ELUD PO (10:33)
--- NOTE | 2020-08-24 16:38 | DS.PDOC ---
Discharge Summary General Date of Admission Aug 17, 2020 at 21:13 Date of Discharge 08/24/20 Discharge Summary PROCEDURES PERFORMED DURING STAY: [None]. ADMITTING DIAGNOSES: Sepsis/metabolic acidosis Dysphagia Partial small bowel obstruction/large bowel obstruction/fecal impaction GI bleed ANTONETTE Hyperkalemia Transaminitis Pneumonitis DISCHARGE DIAGNOSES: Sepsis/metabolic acidosis Dysphagia Partial small bowel obstruction/large bowel obstruction/fecal impaction GI bleed ANTONETTE Hyperkalemia Transaminitis Pneumonitis COMPLICATIONS/CHIEF COMPLAINT: Sepsis. HISTORY OF PRESENT ILLNESS: The history was obtained from the patient's mother the patient has cerebral palsy. Mr. Gamble and his mother, who reside in [place], are visiting a relative in the area. This morning the patient was in his usual state but she noticed that this afternoon while watching TV he became agitated and his abdomen was distended and tight. She gave him stool softeners which helped a little bit but prior to their departure home the patient became more agitated, less responsive, his bowel sounds became loud and he started vomiting brown-colored malodorous fluid. He has had 2 similar episodes in the past which required surgical disimpaction; the patient's mother was concerned that he might have a recurrence therefore she came to the ER for evaluation. HOSPITAL COURSE: During the hospital stay the following issue addressed Sepsis/metabolic acidosis Patient had a leukocytosis, tachycardia, lactic acidosis and dyspnea on admission Procalcitonin significantly elevated to 127 Most likely secondary to bacterial translocation from bowels secondary to small bowel obstruction and large fecal impaction. CT showed Large fecal impaction. Partial small bowel obstruction or focal ileus Patient received treatment with Zosyn IV 1 set of blood culture positive for gram-negative rods, repeated blood culture negative. Sepsis resolved, white blood count within normal limit, patient normotensive, not tachycardic GI bleed Patient had mottling discharged from NG tube Continue PPI twice daily. Hemoglobin stable Partial small bowel obstruction/large bowel obstruction/fecal impaction Surgical team on board Resolved Continue feeding via G tube Dysphagia G/J-tube in place. ANTONETTE Most likely prerenal secondary to intravascular depletion Continue to monitor Resolved Hyperkalemia Resolved Transaminitis Improved. Most likely secondary to fluconazole therapy Hepatitis panel negative Pneumonitis CT showed Diffuse pneumonitis. Bronchiolitis/vasculitis among the considerations. No evidence of interstitial fibrosis which might be expected with connective tissue related disease. 2. Dilated fluid-filled esophagus. Findings suggest a severe gastroesophageal reflux, achalasia or scleroderma Pulmonology team on board DISCHARGE MEDICATIONS: Please see below. ALLERGIES: Please see below. PHYSICAL EXAMINATION ON DISCHARGE: VITAL SIGNS: Please see below. GENERAL APPEARANCE: Cachectic male with cerebral palsy HEENT: no scleral icterus, no JVD, EOMI, central venous pressure (CVP) line in place CARDIOVASCULAR: S1-S2 LUNGS: Diminished lung sounds bilaterally ABDOMEN: soft & not tender w palpitation, G-tube in place MUSCULOSKELETAL: no cyanosis, no swelling INTEGUMENT: no generalized pallor NEUROLOGICAL: Moves 4 limbs, no nuchal rigidity LABORATORY DATA: Please see below. IMAGING: [facility] NAME: MALA GAMBLE DATE OF : 1975 BUSINESS NUMBER: [id number] AGE: 45 SEX: M REPORT #: [id number] ROOM: ED TECHNOLOGIST: [id number] DOCTOR: MALA MALDONADO MASTER [employer] Ordered for Date&Time: 08/17/201820 cc: [~ rep ct ivnm] Service Date&Time: 08/17/201841 This report is in Signed status. Interpretation performed by [facility]. Thank you for having your radiology procedures performed at [facility] RADIOLOGY REPORT Date&Time printed: [~ rep prt dt last] [~ rep prt tm last] Page 2 of 3 [place] [id number] RADIOLOGY REPORT This report is in Signed status. Interpretation performed by [facility]. Thank you for having your radiology procedures performed at [facility] RADIOLOGY REPORT Date&Time printed: [~ rep prt dt last] [~ rep prt tm last] Page 1 of 3 PROCEDURE INFORMATION: Exam: CT Abdomen And Pelvis With Contrast Exam date and time: 08/17/2020 6:42 PM Age: 45 years old Clinical indication: Other: SOB; Further evaluate for infiltrate and obstruction TECHNIQUE: Imaging protocol: Computed tomography of the abdomen and pelvis with contrast. Radiation optimization: All CT scans at this facility use at least one of these dose optimization techniques: automated exposure control; mA and/or kV adjustment per patient size (includes targeted exams where dose is matched to clinical indication); or iterative reconstruction. Contrast material: ISOVUE 370; Contrast volume: 75 ml; Contrast route: INTRAVENOUS (IV); COMPARISON: OK Abdomen,Flat Upright,PA CHEST 08/17/2020 5:17 PM FINDINGS: Tubes, catheters and devices: Peg tube present within the stomach. Lungs: Nodular ground-glass opacities at both lung bases with subpleural atelectasis/consolidation in dependent portion of the lung bases. Mediastinal space: Fluid-filled esophagus. The esophageal wall is thickened. Liver: Normal. No mass. Gallbladder and bile ducts: Normal. No calcified stones. No ductal dilation. Pancreas: Normal. No ductal dilation. Spleen: Normal. No splenomegaly. Adrenal glands: Normal. No mass. Kidneys and ureters: Bilateral simple renal cysts too numerous to count. No hydronephrosis. Stomach and bowel: Bowel herniated into the lesser sac. Massive distention of the rectosigmoid colon with stool. Dilated small bowel loops noted in the abdomen particularly on the right Appendix: Not seen as a separate structure. Intraperitoneal space: Small amount of perihepatic ascites. Moderate amount of ascites within the abdomen and pelvis. Ascites noted in the inguinal canal on the right. Vasculature: Unremarkable. No abdominal aortic aneurysm. Lymph nodes: Unremarkable. No enlarged lymph nodes. Urinary bladder: Loculated fluid collection noted in the right hemipelvis may be related to the patient's bladder which is displaced anteriorly and to the right by the massively distended rectosigmoid colon. Reproductive: Unremarkable as visualized. Bones/joints: Unremarkable. No acute fracture. Soft tissues: 1.7 cm Lipoma on the right adjacent to obturator externus muscle.. IMPRESSION: 1. Large fecal impaction. Partial small bowel obstruction or focal ileus. 2. Foramen of Sukhjinder hernia. 3. Moderate amount of intra-abdominal ascites. 4. Bilateral simple renal cysts.No further workup recommended. 5. Fluid collection right lower quadrant probably representing the patient's bladder which is displaced by the massively distended rectosigmoid colon 6. Six. Nodular ground-glass opacities at the lung bases. Bronchiolitis or vasculitis among the diagnostic considerations COMMENTS: Consistent with the [employer]'s Incidental Findings Committee white paper (J Am Javad Radiol 2018): Any incidental renal lesion less than 1 cm or classified as too small to characterize, or any incidental cystic renal lesion characterized as simple-appearing, is likely benign. No follow-up imaging is recommended for these lesions per consensus recommendations based on imaging criteria. Electronically signed by: Melisa Sanchez On 08/17/2020 20:04:25 PM DD: MELISA SANCHEZ MD 08/17/20 184 DT: TIMMY 08/17/202003 DS: RAMO 08/17/202003 [~ rep ct labl] PROGNOSIS: Fair ACTIVITY: [As tolerated]. DIET: Continue previous home diet DISPOSITION: 01 Home, Self-Care. ITEMS TO FOLLOWUP ON ON OUTPATIENT: Follow-up with PCP DISCHARGE CONDITION: [Stable]. TIME SPENT ON DISCHARGE:40minutes. Vital Signs/I&Os Vital Signs Date Time Temp Pulse Resp B/P (MAP) Pulse Ox O2 Delivery O2 Flow Rate FiO2 08/24/20 08:00 98.6 86 20 130/76 (94) 93 Room Air 08/21/20 15:33 2.0 08/21/20 04:00 28 I&O- Last 24 Hours up to 6 AM 08/24/20 06:00 Intake Total 2990 ml Output Total 1525 ml Balance 1465 ml Laboratory Data Labs 24H Laboratory Tests 2 08/23/20 17:52: Bedside Glucose (Misc Panel) 89 08/24/20 00:03: Bedside Glucose (Misc Panel) 126H 08/24/20 04:55: Immature Granulocyte % (Auto) 0.5, Neutrophils (%) (Auto) 50.3, Lymphocytes (%) (Auto) 27.3, Monocytes (%) (Auto) 16.1H, Eosinophils (%) (Auto) 5.5H, Basophils (%) (Auto) 0.3, Neutrophils # (Auto) 3.8, Lymphocytes # (Auto) 2.0, Monocytes # (Auto) 1.2H, Eosinophils # (Auto) 0.4, Basophils # (Auto) 0.0, Nucleated Red Blood Cells % (auto) 0.0, Anion Gap 5L, Glomerular Filtration Rate > 60.0, Calcium Level 7.6L, Phosphorus Level 3.2#, Total Bilirubin 0.1L, Aspartate Amino Transf (AST/SGOT) 21, Alanine Aminotransferase (ALT/SGPT) 29, Alkaline Phosphatase 76, Lactate Dehydrogenase 145, Total Creatine Kinase 32L, Total Protein 5.1L, Albumin 2.0L, Albumin/Globulin Ratio 0.6, Triglycerides Level 58, Cholesterol Level 60 08/24/20 05:49: Bedside Glucose (Misc Panel) 121H CBC/BMP Laboratory Tests 08/24/20 04:55 FSBS Laboratory Tests Test 08/23/20 17:52 08/24/20 00:03 08/24/20 05:49 Range/Units Bedside Glucose (Misc Panel) 89 126 121 70-105 MG/DL Microbiology Microbiology 08/20/20 Blood Culture - Preliminary, Resulted No Growth after 72 hours. All specime... 08/20/20 Blood Culture - Preliminary, Resulted No Growth after 72 hours. All specime... 08/20/20 Occult Blood - Final, Complete 08/18/20 Blood Culture - Final, Complete Enterobacter Aerogenes 08/18/20 Blood Culture - Final, Complete NO GROWTH AFTER 5 DAYS 08/17/20 Blood Culture - Final, Complete NO GROWTH AFTER 5 DAYS 08/17/20 Blood Culture - Final, Complete NO GROWTH AFTER 5 DAYS Discharge Medications Scheduled Baclofen (Baclofen) 20 Mg Tablet, 20 MG PO TID, (Reported) Docusate Sodium (Docu Liquid) 50 Mg/5 Ml Liquid, 200 MG PO BID Famotidine (Famotidine) 20 Mg Tablet, 20 MG PO BID, (Reported) Fexofenadine HCl (Fexofenadine HCl) 180 Mg Tablet, 180 MG PO DAILY, (Reported) Fluconazole (Fluconazole) 200 Mg Tablet, 400 MG PO DAILY, (Reported) Guaifenesin (Mucinex) 1,200 Mg Tab.er.12h, 1,200 MG PO BID, (Reported) Lactulose (Lactulose) 10 Gm/15 Ml Solution, 30 ML PO QHS, (Reported) Lorazepam (Lorazepam) 1 Mg Tablet, 1 MG PO DAILY, (Reported) Omeprazole (Omeprazole) 40 Mg Capsule.dr, 40 MG PO BID, (Reported) Scopolamine (Transderm-Scop) 1 Each Patch.td.3, 1 MG TOP Q72H, (Reported) BEHIND LEFT EAR Scopolamine (Transderm-Scop) 1 Each Patch.td.3, 1 MG TOP Q72H Scheduled PRN Ibuprofen (Ibu-200) 200 Mg Tablet, 600 MG PO Q4H PRN for PAIN LEVEL 1-5, (Reported) Lorazepam (Ativan) 1 Mg Tablet, 1 MG PO QHS PRN for ANXIETY, (Reported) Allergies Coded Allergies: metronidazole (Unverified Allergy, Mild, rash, 08/22/20) DROZHZHIN,LILI DO Aug 24, 2020 16:37
== END 2020-08-24 13:34 | disposition home or self-care (01) | DRG 871 ==
LOC: M ED 15:58 → M ED INP 21:13 → M ICU 08-18 20:00 → M PCU 08-21 13:50
PROVIDERS: ADMIT Internal Medicine; ATTEND Internal Medicine
PROC: 05HM33Z Insertion of Infusion Device into Right Internal Jugular Vein, Percutaneous Approach (ICD-10-PCS; principal; 2020-08-19)
DX: A41.9 Sepsis, unspecified organism (principal); J18.9 Pneumonia, unspecified organism; E87.2 Acidosis; N17.9 Acute kidney failure, unspecified; K56.600 Partial intestinal obstruction, unspecified as to cause; R18.8 Other ascites; K92.2 Gastrointestinal hemorrhage, unspecified; K56.7 Ileus, unspecified; J98.11 Atelectasis; K21.9 Gastro-esophageal reflux disease without esophagitis; G80.9 Cerebral palsy, unspecified; K56.41 Fecal impaction; R74.01 Elevation of levels of liver transaminase levels; Z20.822 Contact with and (suspected) exposure to COVID-19; Z79.899 Other long term (current) drug therapy; E87.5 Hyperkalemia; R13.10 Dysphagia, unspecified; R09.02 Hypoxemia; Z93.1 Gastrostomy status